=== PATIENT | male | born 1940 | race Caucasian/White ===

== ENCOUNTER 2016-12-25 01:08 | Inpatient (IN) | payer MEDICARE, MEDICAID ==
[2016-12-25] VITALS (7 sets, daily range): BP systolic 94–129; BP diastolic 57–76
[~2016-12-25] VITALS: Ht 170.2 cm; Wt 59.0 kg
[2016-12-25] MEDS ORDERED: ASCORBIC ACID500 MG ORAL (01:52)
[2016-12-25 02:07] LABS: KETONES,URINE NEGATIVE (NEGATIVE); LEUKOCYTE ESTERASE ,URINE 1+ (NEGATIVE); NITRITE,URINE NEGATIVE (NEGATIVE); PH,URINE 6 (4.5-8.0); PROTEIN,URINE NEGATIVE (NEGATIVE); UROBILINOGEN,URINE 4 MG/DL (0.0-1.0)
[2016-12-25 02:09] LABS: APPEARANCE,URINE CLEAR
[2016-12-25] MEDS ORDERED: COLACE CLEAR50 MG PO (02:13)
[2016-12-25] MEDS ORDERED: DIVALPROEX SOD250 M1 PO (02:13)
[2016-12-25] MEDS ORDERED: LORAZEPAM0.5 MG ORAL (02:13)
[2016-12-25] MEDS ORDERED: VITAMIN B-1100 MG ORAL (02:13)
[2016-12-25] MEDS ORDERED: PRAVASTATIN SOD20 M1 ORAL (02:13)
[2016-12-25] MEDS ORDERED: FAMOTIDINE20 MG ORAL (02:13)
[2016-12-25] MEDS ORDERED: MILK OF MA400 MG/51 ORAL (02:13)
[2016-12-25] MEDS ORDERED: CARVEDILOL3.125 MG ORAL (02:13)
[2016-12-25] MEDS ORDERED: MELATONIN3 MG ORAL (02:13)
[2016-12-25] MEDS ORDERED: FUROSEMIDE40 MG ORAL (02:13)
[2016-12-25] MEDS ORDERED: DULCOLAX10 MG RC (02:13)
[2016-12-25] MEDS ORDERED: DIGOXIN125 MCG ORAL (02:13)
[2016-12-25 02:15] LABS: TROPONIN I < 0.30 ng/mL (<=0.30)
[2016-12-25 02:18] LABS: ALANINE AMINOTRANSFERASE 18 U/L (3-41); ALBUMIN/GLOBULIN RATIO 1.5 (1.0-2.7); ANION GAP 12 (5-15); ASPARTATE AMINO TRANSFERASE 21 U/L (5-40); CALCIUM 9.8 mg/dL (8.6-10.2); CARBON DIOXIDE 36 mEQ/L (20-30); CHLORIDE 91 mEQ/L (98-107); CREATININE 1.7 mg/dL (0.7-1.2); HEMOLYSIS 7; LIPASE 77 U/L (< 60); POTASSIUM 3.6 mEQ/L (3.4-4.9); SODIUM 139 mEQ/L (135-145); TOTAL PROTEIN 7.1 g/dL (6.6-8.7)
[2016-12-25 02:29] LABS: CKMB 3.6 ng/mL (< 6.7)
[2016-12-25 02:54] LABS: BASOPHILS % (AUTO) 0.5 % (0.0-2.0); EOSINOPHILS % (AUTO) 0.3 % (0.0-3.0); LYMPHOCYTES % (AUTO) 21.3 % (20.0-45.0); MEAN CORPUSCULAR HEMOGLOBIN 33.1 PG (27.0-31.0); MEAN CORPUSCULAR HGB CONC 35.6 G/DL (32.0-36.0); MEAN CORPUSCULAR VOLUME 93 FL (80-99); MEAN PLATELET VOLUME 10.1 FL (6.5-10.1); MONOCYTES % (AUTO) 5.4 % (1.0-10.0); NEUTROPHILS % (AUTO) 72.5 % (45.0-75.0); PLATELET COUNT 102 K/UL (150-450); RED BLOOD COUNT 3.96 M/UL (4.70-6.10)
[2016-12-25 03:09] LABS: BACTERIA,URINE OCCASIONAL /HPF; MUCUS,URINE FEW /LPF (NONE/OCC); RBC,URINE 0-2 /HPF (0 - 0); SQUAMOUS EPITHELIAL CELL,UR OCCASIONAL /LPF (NONE/OCC)
--- NOTE | 2016-12-25 04:05 | Emergency Room Report ---
History of Present Illness General Chief Complaint: Generalized Weakness Source: EMS Present Illness HPI Patient was sent in from nursing facility with complaints of agitation Patient was noted to have decreased oral intake No reports of vomiting or diarrhea Patient himself is unable to provide appropriate history This does limit the history of present illness significantly No obvious fevers reported no obvious rash No other change in medications recently Patient's condition had deteriorated according to long-term patient sent in for further eval Allergies: Coded Allergies: No Known Allergies (Unverified , 12/25/16) Patient History Limited by: medical condition Pertinent Family History: unable to obtain Reviewed Nursing Documentation: PMH: Agreed, PSxH: Agreed Nursing Documentation-PMH Hx Cardiac Problems: Yes - CHF,A FIB,HYPERLIPIDEMIA Hx Hypertension: Yes Hx Pacemaker: Yes Hx Gastrointestinal Problems: Yes - CHRONIC KIDNEY DISEASE Hx Seizures: Yes Review of Systems All Other Systems: limited - Other than the ones mentioned in the history of present illness all others are reviewed however they do stay limited due to the patient's mental status Physical Exam Vital Signs Date Time Temp Pulse Resp B/P Pulse Ox O2 Delivery O2 Flow Rate FiO2 12/25/16 01:00 97.5 78 16 164/85 91 Room Air 12/25/16 03:26 2.0 Sp02 EP Interpretation: reviewed, normal General Appearance: no apparent distress - Appears chronically debilitated Head: normocephalic, atraumatic Eyes: bilateral eye EOMI, bilateral eye PERRL ENT: TMs + canals normal, uvula midline, dry mucus membranes Neck: full range of motion, supple, no meningismus, no bony tend Respiratory: lungs clear, normal breath sounds, no rhonchi, no respiratory distress, no retraction, no accessory muscle use Cardiovascular #1: normal peripheral pulses, regular rate, rhythm, no edema, no gallop, no JVD, no murmur Gastrointestinal: normal bowel sounds, non tender, soft, no mass, no organomegaly, non-distended, no guarding, no hernia, no pulsatile mass, no rebound Genitourinary: no CVA tenderness Musculoskeletal: other - Patient does not follow commands appears chronically debilitated, muscle exam is limited Neurologic: responsive, sensory intact Psychiatric: mood/affect normal Skin: normal color, no rash, warm/dry, palpation normal Lymphatic: normal inspection, no adenopathy Medical Decision Making Diagnostic Impression: Primary Impression: Renal failure Additional Impressions: Dehydration Weakness ER Course Patient is a fairly complex patient with multiple differential to consideration including but not limited to cardiac cardiopulmonary and vascular emergencies Patient's blood work revealed abnormal kidney function Urine sample have further culture prior to any antibiotic initiation Patient was further hydrated and requires inpatient care Labs Test 12/25/16 01:45 12/25/16 01:58 White Blood Count 8.0 K/UL (4.8-10.8) Red Blood Count 3.96 M/UL (4.70-6.10) Hemoglobin 13.1 G/DL (14.2-18.0) Hematocrit 36.9 % (42.0-52.0) Mean Corpuscular Volume 93 FL (80-99) Mean Corpuscular Hemoglobin 33.1 PG (27.0-31.0) Mean Corpuscular Hemoglobin Concent 35.6 G/DL (32.0-36.0) Red Cell Distribution Width 13.0 % (11.6-14.8) Platelet Count 102 K/UL (150-450) Mean Platelet Volume 10.1 FL (6.5-10.1) Neutrophils (%) (Auto) 72.5 % (45.0-75.0) Lymphocytes (%) (Auto) 21.3 % (20.0-45.0) Monocytes (%) (Auto) 5.4 % (1.0-10.0) Eosinophils (%) (Auto) 0.3 % (0.0-3.0) Basophils (%) (Auto) 0.5 % (0.0-2.0) Sodium Level 139 mEQ/L (135-145) Potassium Level 3.6 mEQ/L (3.4-4.9) Chloride Level 91 mEQ/L (98-107) Carbon Dioxide Level 36 mEQ/L (20-30) Anion Gap 12 (5-15) Blood Urea Nitrogen 51 mg/dL (7-23) Creatinine 1.7 mg/dL (0.7-1.2) Estimat Glomerular Filtration Rate mL/min (>60) Glucose Level 97 mg/dL (74-106) Lactic Acid Level 1.40 mmol/L (0.66-2.22) Calcium Level 9.8 mg/dL (8.6-10.2) Total Bilirubin 0.6 mg/dL (0.0-1.2) Aspartate Amino Transf (AST/SGOT) 21 U/L (5-40) Alanine Aminotransferase (ALT/SGPT) 18 U/L (3-41) Alkaline Phosphatase 61 U/L (40-129) Total Creatine Kinase 54 U/L (38-174) Creatine Kinase MB 3.6 ng/mL (< 6.7) Creatine Kinase MB Relative Index 6.6 Troponin I < 0.30 ng/mL (<=0.30) Total Protein 7.1 g/dL (6.6-8.7) Albumin 4.3 g/dL (3.5-5.2) Globulin 2.8 g/dL Albumin/Globulin Ratio 1.5 (1.0-2.7) Lipase 77 U/L (< 60) Urine Color Yellow Urine Appearance Clear Urine pH 6 (4.5-8.0) Urine Specific [place] 1.015 (1.005-1.035) Urine Protein Negative (NEGATIVE) Urine Glucose (UA) Negative (NEGATIVE) Urine Ketones Negative (NEGATIVE) Urine Occult Blood Negative (NEGATIVE) Urine Nitrite Negative (NEGATIVE) Urine Bilirubin Negative (NEGATIVE) Urine Urobilinogen 4 MG/DL (0.0-1.0) Urine Leukocyte Esterase 1+ (NEGATIVE) Urine RBC 0-2 /HPF (0 - 0) Urine WBC 2-4 /HPF (0 - 0) Urine Squamous Epithelial Cells Occasional /LPF Urine Bacteria Occasional /HPF (NONE) Urine Mucus Few /LPF (NONE/OCC) Rhythm Strip Diag. Results EP Interpretation: yes Rate: 67 Rhythm: NSR, no PVC's, no ectopy Chest X-Ray Diagnostic Results EP Interpretation: Yes Findings: no consolidation, no effusion, no pneumothorax Number of Views: 1 Last Vital Signs Date Time Temp Pulse Resp B/P Pulse Ox O2 Delivery O2 Flow Rate FiO2 12/25/16 03:26 97.5 64 14 106/63 100 Nasal Cannula 2.0 Status: improved Disposition: ADMITTED INPATIENT Condition: Serious Referrals: AGNIESZKA BURNS (PCP) JAKE NAM D.O. Dec 25, 2016 04:05
[2016-12-25] MEDS ORDERED: Morphine Sulfate 2mg/ml Inj IVP PRN (08:00)
[2016-12-25] MEDS ORDERED: Mylanta II UD 30ml ORAL PRN (08:00)
[2016-12-25] MEDS: Digoxin 0.125mg tab ORAL SCH (09:22)
[2016-12-25] MEDS: D5 1/2NS 1,000 ML IV SCH ×2 (09:24→21:19)
[2016-12-25 10:31] LABS: ALANINE AMINOTRANSFERASE 16 U/L (3-41); ALBUMIN/GLOBULIN RATIO 1.6 (1.0-2.7); ANION GAP 11 (5-15); ASPARTATE AMINO TRANSFERASE 18 U/L (5-40); CALCIUM 9.4 mg/dL (8.6-10.2); CARBON DIOXIDE 35 mEQ/L (20-30); CHLORIDE 94 mEQ/L (98-107); CREATININE 1.7 mg/dL (0.7-1.2); LACTATE DEHYDROGENASE 220 U/L (135-230); MAGNESIUM 2.4 mg/dL (1.7-2.5); PHOSPHORUS 2.8 mg/dL (2.5-4.8); POTASSIUM 3.4 mEQ/L (3.4-4.9); SODIUM 140 mEQ/L (135-145); TOTAL PROTEIN 6.5 g/dL (6.6-8.7); URIC ACID 10.9 mg/dL (3.0-7.5)
[2016-12-25 10:32] LABS: INR 1.1 (0.9-1.1); PROTHROMBIN TIME 11.2 SEC (9.30-11.50)
[2016-12-25 10:43] LABS: FREE T3 1.8 pg/mL (2.3-4.2)
[2016-12-25 10:58] LABS: HEMOLYSIS 3; IRON 53 ug/dL (59-158); TOTAL IRON BINDING CAPACITY 168 ug/dL (250-400)
[2016-12-25 11:02] LABS: BAND NEUTROPHILS % (MANUAL) 0 % (0-8); BASOPHILS % (MANUAL) 0 % (0-2); EOSINOPHILS % (MANUAL) 0 % (0-3); LYMPHOCYTES % (MANUAL) 17 % (20-45); NEUTROPHILS % (MANUAL) 73 % (45-75); PLATELET ESTIMATE DECREASED; PLATELET MORPHOLOGY NORMAL; TOTAL CELLS COUNTED 100
[2016-12-25 11:06] LABS: PATH BLOOD SMEAR/OMC SENT TO PATHOLOGIST
--- NOTE | 2016-12-25 11:41 | Diagnostic Imaging Report ---
Indication: Abnormal renal function tests Technique: Grayscale and duplex images of the kidneys, retroperitoneum, and bladder were obtained. Comparison: Findings: Right kidney measures 10 cm in length. Left kidney measures 9 cm in length. Both kidneys demonstrate normal echogenicity. No hydronephrosis. There are small bilateral renal cysts.. Normal inferior vena cava. Bladder is distended. Non-shadowing hyperechoic foci are seen on the right. Impression: Negative for hydronephrosis. Non-shadowing hyperechoic foci on the right, the represent nonobstructive calyceal calculi or could be artifactual Incidental finding small bilateral renal cysts
--- NOTE | 2016-12-25 12:50 | Diagnostic Imaging Report ---
Indication: Chest pain Technique: One view of the chest Comparison: none Findings: There is a left chest unifocal AICD. Lungs and pleural spaces are clear. Patient's chin obscures the upper mediastinum. Aorta is tortuous and calcified. Heart size is normal Impression: No acute process
--- NOTE | 2016-12-25 16:50 | Consultation ---
History of Present Illness General Date patient seen: Dec 25, 2016 Time patient seen: 13:00 Chief Complaint: Generalized Weakness Referring physician: Anthony Reason for Consultation: IM management Present Illness HPI Patient was sent in to ED for evaluation from nursing facility with complaints of agitation, decreased oral intake No reports of vomiting or diarrhea No reported fevers, chills Patient himself was unable to provide appropriate history Patient's condition had deteriorated according to correction patient sent in for further evaluation ED workup revealed evidence of renal failure patient was hydrated and transferred to [facility] floor for further management PMH significant for HTN, pacemaker, CKD, A fib, CHF, hyperlipidemia, seizure disorder Allergies: Coded Allergies: No Known Allergies (Unverified , 12/25/16) Medication History Scheduled Ascorbic Acid* (Ascorbic Acid*), 500 MG ORAL DAILY, (Reported) Carvedilol* (Carvedilol*), 3.125 MG ORAL EVERY 12 HOURS, (Reported) Digoxin* (Digoxin*), 125 MCG ORAL DAILY, (Reported) Divalproex Sodium (Divalproex Sodium Er), 250 MG PO BID, (Reported) Famotidine (Famotidine), 20 MG ORAL BEDTIME, (Reported) Furosemide* (Lasix*), 40 MG ORAL DAILY, (Reported) Pravastatin Sod* (Pravastatin Sod*), 20 MG ORAL BEDTIME, (Reported) Thiamine Hcl* (Vitamin B-1*), 100 MG ORAL DAILY, (Reported) Scheduled PRN Lorazepam* (Lorazepam*), 0.5 MG ORAL Q6HR PRN for For Anxiety, (Reported) Magnesium Hydroxide* (Milk Of Magnesia*), 30 ML ORAL DAILY PRN for Constipation, (Reported) Melatonin (Melatonin), 3 MG ORAL BEDTIME PRN for Insomnia, (Reported) Miscellaneous Medications Bisacodyl (Dulcolax), 10 MG RC, (Reported) Docusate Sodium (Colace Clear), 100 MG PO, (Reported) Patient History History Provided By: Medical Record, EMS Healthcare decision maker Resuscitation status DNR/DNI Advanced Directive on File Review of Systems ROS Narrative unable to obtain 2 to ALOC Physical Exam General Appearance: other - chronically debilitated Lines, tubes and drains: peripheral HEENT: normocephalic, atraumatic, anicteric Neck: supple Respiratory/Chest: lungs clear, no accessory muscle use Cardiovascular/Chest: normal rate, regular rhythm Abdomen: normal bowel sounds, non tender, soft Extremities: no calf tenderness Skin Exam: warm/dry Neurologic: abnormal gait Musculoskeletal: atrophy - BLE Last 24 Hour Vital Signs Date Time Temp Pulse Resp B/P Pulse Ox O2 Delivery O2 Flow Rate FiO2 12/25/16 16:00 97.6 70 20 129/70 97 Room Air 12/25/16 09:22 77 12/25/16 08:00 96.8 77 18 128/74 98 Room Air 12/25/16 07:20 81 18 102/59 100 Room Air 12/25/16 06:54 97.5 83 17 94/57 100 Nasal Cannula 2.0 12/25/16 03:26 97.5 64 14 106/63 100 Nasal Cannula 2.0 12/25/16 01:15 97.5 72 14 110/76 97 Room Air 12/25/16 01:00 97.5 78 16 164/85 91 Room Air Intake and Output 12/24/16 12/25/16 19:00 07:00 # Voids 1 Laboratory Tests Test 12/25/16 01:45 12/25/16 01:58 12/25/16 09:30 White Blood Count 8.0 K/UL (4.8-10.8) Red Blood Count 3.96 M/UL (4.70-6.10) L Hemoglobin 13.1 G/DL (14.2-18.0) L Hematocrit 36.9 % (42.0-52.0) L Mean Corpuscular Volume 93 FL (80-99) Mean Corpuscular Hemoglobin 33.1 PG (27.0-31.0) H Mean Corpuscular Hemoglobin Concent 35.6 G/DL (32.0-36.0) Red Cell Distribution Width 13.0 % (11.6-14.8) Platelet Count 102 K/UL (150-450) L Mean Platelet Volume 10.1 FL (6.5-10.1) Neutrophils (%) (Auto) 72.5 % (45.0-75.0) Lymphocytes (%) (Auto) 21.3 % (20.0-45.0) Monocytes (%) (Auto) 5.4 % (1.0-10.0) Eosinophils (%) (Auto) 0.3 % (0.0-3.0) Basophils (%) (Auto) 0.5 % (0.0-2.0) Differential Total Cells Counted 100 Neutrophils % (Manual) 73 % (45-75) Lymphocytes % (Manual) 17 % (20-45) L Monocytes % (Manual) 10 % (1-10) Eosinophils % (Manual) 0 % (0-3) Basophils % (Manual) 0 % (0-2) Band Neutrophils 0 % (0-8) Platelet Estimate Decreased L Platelet Morphology Normal Red Blood Cell Morphology Normal Sodium Level 139 mEQ/L (135-145) 140 mEQ/L (135-145) Potassium Level 3.6 mEQ/L (3.4-4.9) 3.4 mEQ/L (3.4-4.9) Chloride Level 91 mEQ/L (98-107) L 94 mEQ/L (98-107) L Carbon Dioxide Level 36 mEQ/L (20-30) H 35 mEQ/L (20-30) H Anion Gap 12 (5-15) 11 (5-15) Blood Urea Nitrogen 51 mg/dL (7-23) H 51 mg/dL (7-23) H Creatinine 1.7 mg/dL (0.7-1.2) H 1.7 mg/dL (0.7-1.2) H Estimat Glomerular Filtration Rate mL/min (>60) mL/min (>60) Glucose Level 97 mg/dL (74-106) 109 mg/dL (74-106) H Lactic Acid Level 1.40 mmol/L (0.66-2.22) Calcium Level 9.8 mg/dL (8.6-10.2) 9.4 mg/dL (8.6-10.2) Total Bilirubin 0.6 mg/dL (0.0-1.2) 0.6 mg/dL (0.0-1.2) Aspartate Amino Transf (AST/SGOT) 21 U/L (5-40) 18 U/L (5-40) Alanine Aminotransferase (ALT/SGPT) 18 U/L (3-41) 16 U/L (3-41) Alkaline Phosphatase 61 U/L (40-129) 55 U/L (40-129) Total Creatine Kinase 54 U/L (38-174) 34 U/L (38-174) L Creatine Kinase MB 3.6 ng/mL (< 6.7) Creatine Kinase MB Relative Index 6.6 Troponin I < 0.30 ng/mL (<=0.30) Total Protein 7.1 g/dL (6.6-8.7) 6.5 g/dL (6.6-8.7) L Albumin 4.3 g/dL (3.5-5.2) 4.0 g/dL (3.5-5.2) Globulin 2.8 g/dL 2.5 g/dL Albumin/Globulin Ratio 1.5 (1.0-2.7) 1.6 (1.0-2.7) Lipase 77 U/L (< 60) H Urine Color Yellow Urine Appearance Clear Urine pH 6 (4.5-8.0) Urine Specific [place] 1.015 (1.005-1.035) Urine Protein Negative (NEGATIVE) Urine Glucose (UA) Negative (NEGATIVE) Urine Ketones Negative (NEGATIVE) Urine Occult Blood Negative (NEGATIVE) Urine Nitrite Negative (NEGATIVE) Urine Bilirubin Negative (NEGATIVE) Urine Urobilinogen 4 MG/DL (0.0-1.0) H Urine Leukocyte Esterase 1+ (NEGATIVE) H Urine RBC 0-2 /HPF (0 - 0) H Urine WBC 2-4 /HPF (0 - 0) Urine Squamous Epithelial Cells Occasional /LPF Urine Bacteria Occasional /HPF (NONE) Urine Mucus Few /LPF (NONE/OCC) H Urine Osmolality Pending Erythrocyte Sedimentation Rate 26 MM/HR (0-20) H Reticulocyte Count 1.0 % (0.0-2.0) Prothrombin Time 11.2 SEC (9.30-11.50) Prothromb Time International Ratio 1.1 (0.9-1.1) Activated Partial Thromboplast Time 25 SEC (23-33) Plasma/Serum Osmolality Pending Uric Acid 10.9 mg/dL (3.0-7.5) H Phosphorus Level 2.8 mg/dL (2.5-4.8) Magnesium Level 2.4 mg/dL (1.7-2.5) Iron Level 53 ug/dL (59-158) L Total Iron Binding Capacity 168 ug/dL (250-400) L Percent Iron Saturation 32 % (15-50) Unsaturated Iron Binding 115 ug/dL (112-346) Lactate Dehydrogenase 220 U/L (135-230) Carcinoembryonic Antigen 4.2 ng/mL H Vitamin B12 Level 769 pg/mL (211-946) Folate Pending Thyroid Stimulating Hormone (TSH) 1.410 uIU/mL (0.300-4.500) Free Thyroxine 1.57 ng/dL (0.86-1.85) Free Triiodothyronine 1.8 pg/mL (2.3-4.2) L Cortisol Pending Height (Feet): 5 Height (Inches): 7.00 Weight (Pounds): 130 Medications Current Medications Medications (Trade) Dose Ordered Sig/Holly Route PRN Reason Start Time Stop Time Status Last Admin Dose Admin Acetaminophen (Tylenol) 650 mg Q4H PRN ORAL fever>100.5 12/25/16 08:00 01/24/17 07:59 Al Hydroxide/Mg Hydroxide 30 ml 30 ml Q6H PRN ORAL dyspepsia 12/25/16 08:00 01/24/17 07:59 Dextrose (Dextrose 50%) STAT PRN IV Hypoglycemia 12/25/16 08:00 01/24/17 07:59 Dextrose/Sodium Chloride (D5 0.45% NS) 1,000 ml @ 75 mls/hr [id number] IV 12/25/16 08:00 01/24/17 07:59 12/25/16 09:24 Digoxin (Lanoxin) 0.125 mg DAILY ORAL 12/25/16 09:00 01/24/17 08:59 12/25/16 09:22 Lorazepam (Ativan 2mg/ml 1ml) 0.5 mg Q4H PRN IV For Anxiety 12/25/16 08:00 01/01/17 07:59 Morphine Sulfate (Morphine Sulfate) 1 mg Q4H PRN IVP For Pain 12/25/16 08:00 01/01/17 07:59 Ondansetron HCl (Zofran) 4 mg Q6H PRN IVP Nausea & Vomiting 12/25/16 08:00 01/24/17 07:59 Polyethylene Glycol (Miralax) 17 gm HSPRN PRN ORAL Constipation 12/25/16 21:00 01/24/17 20:59 Pravastatin Sodium (Pravachol) 20 mg BEDTIME ORAL 12/25/16 21:00 01/24/17 20:59 Zolpidem Tartrate (Ambien) 5 mg HSPRN PRN ORAL Insomnia 12/25/16 21:00 01/24/17 20:59 Assessment/Plan Assessment/Plan ASSESSMENT ATN on CKD dehydration weakness PAF CHF hyperlipidemia seizure disorder elevated CEA PLAN OF CARE MS floor IVF monitor renal parameters, lytes avoid nephrotoxic renal US nephro eval as per PMD discretion fup with cx ( done in ED), no abx for now, no clinical evidence of infection currently in SR, resumed Digoxin and Coreg continue statin, check lipid panel seizure precautions, continue Depakote monitor HH, stable recommend outpt GI procedures PT/OT/ST eval and Rx dietary eval calorie count according to POLST patient is DNR/DNI status with focus on comfort measures case discussed and evaluated by supervising physician Nicanor (Opal),Pallavi MESA Dec 25, 2016 16:50
[2016-12-25] MEDS: Depakote ER 250mg tab ORAL SCH (17:54)
--- NOTE | 2016-12-25 19:37 | History and Physical Report ---
DATE OF ADMISSION: 12/25/2016 TIME OF EVALUATION: At 1 p.m. ATTENDING PHYSICIAN: Scott Cruz D.O. CONSULTANTS: 1. Christina Graves M.D. 2. Tierra Mills M.D. 3. Rishi Cook M.D. CHIEF COMPLAINT: Weakness, agitation, encephalopathy. BRIEF HISTORY: This is a 76-year-old male from [facility], who presents to [facility] with history of increased confusion, agitation, and weakness. Diagnosed of renal failure, agitation, weakness, and encephalopathy and admitted to medical floor for treatment. Currently, calm, sleeping in bed, confused, not talking much. REVIEW OF SYSTEMS: Not available. PAST MEDICAL HISTORY: Includes renal failure, encephalopathy. PAST SURGICAL HISTORY: None. ALLERGIES: Denies. MEDICATIONS: Pravachol, MiraLAX, Ambien, Lanoxin, Zofran, Ativan, dextrose, and Mylanta. SOCIAL HISTORY: No smoking or alcohol. No intravenous drug abuse. FAMILY HISTORY: Noncontributory. PHYSICAL EXAMINATION: GENERAL: Calm in bed, disoriented x3, in no acute distress. VITAL SIGNS: Show temperature 96, pulse 77, respiratory rate 18, and blood pressure 128/74. CARDIOVASCULAR: No murmur. Distant. LUNGS: Clear. ABDOMEN: Bowel sounds positive. Nontender and nondistended. EXTREMITIES: Show no cyanosis or edema. NEUROLOGIC: The patient moves all extremities. Does not want to follow commands. LABORATORY AND DIAGNOSTIC DATA: Labs at this time show hemoglobin 13, platelets 102,000. Chloride 94, bicarbonate , BUN 51, creatinine 1.7, glucose 109. Uric acid 10.9. Troponin less than 0.3. Lipase 77. INR is 1.1. Urinalysis shows 1+ leukocyte esterase. ASSESSMENT: 1. Renal failure. 2. Urinary tract infection. 3. Agitation. 4. Weakness. 5. Encephalopathy. PLAN: Continue premedications. IV fluids. Antibiotics per infectious disease. OT, PT, dietary evaluation. CBC and BMP in the morning. Resume home medications. Dr. Graves, Dr. Mills, Dr. Cook, and Dr. Jacobsen to consult. Scott Cruz D.O. DR: Maldonado JOB#: [id number] CC:
[2016-12-25] MEDS ORDERED: Miralax 17gm pkt ORAL PRN (21:00)
[2016-12-25] MEDS ORDERED: Zolpidem 5mg tab ORAL PRN (21:00)
[2016-12-26] VITALS: BP 138/84
[2016-12-26 04:00] VITALS: BP 132/65
[2016-12-26 07:16] LABS: MEAN CORPUSCULAR HEMOGLOBIN 32.5 PG (27.0-31.0); MEAN CORPUSCULAR HGB CONC 34.6 G/DL (32.0-36.0); MEAN CORPUSCULAR VOLUME 94 FL (80-99); MEAN PLATELET VOLUME 9.8 FL (6.5-10.1); PLATELET COUNT 80 K/UL (150-450); RED BLOOD COUNT 3.34 M/UL (4.70-6.10); RED CELL DISTRIBUTION WIDTH 13.4 % (11.6-14.8); WHITE BLOOD COUNT 6.3 K/UL (4.8-10.8)
[2016-12-26 07:24] LABS: ALANINE AMINOTRANSFERASE 13 U/L (3-41); ALBUMIN/GLOBULIN RATIO 1.6 (1.0-2.7); ANION GAP 10 (5-15); ASPARTATE AMINO TRANSFERASE 15 U/L (5-40); CALCIUM 9.4 mg/dL (8.6-10.2); CARBON DIOXIDE 36 mEQ/L (20-30); CHLORIDE 93 mEQ/L (98-107); CHOLESTEROL 113 mg/dL (< 200); CHOLESTEROL/HDL RATIO 1.9 (3.3-4.4); CREATININE 1.6 mg/dL (0.7-1.2); HEMOLYSIS 6; LDL CHOLESTEROL (CALC.) 31 mg/dL (60-99); POTASSIUM 3.7 mEQ/L (3.4-4.9); SODIUM 139 mEQ/L (135-145)
--- NOTE | 2016-12-26 08:20 | General Progress Note ---
Assessment/Plan Problem List: (1) UTI (urinary tract infection) ICD Codes: N39.0 - Urinary tract infection, site not specified SNOMED: 89332890 (2) Renal failure ICD Codes: N19 - Unspecified kidney failure SNOMED: 77603885 (3) Weakness ICD Codes: R53.1 - Weakness SNOMED: 44734082 Status: stable, progressing Assessment/Plan ot pt diet ivf abx cbc bmp am Subjective Constitutional: Reports: weakness Allergies: Coded Allergies: No Known Allergies (Unverified , 12/25/16) All Systems: reviewed and negative except above Subjective calm sleepy in bed Objective Last 24 Hour Vital Signs Date Time Temp Pulse Resp B/P Pulse Ox O2 Delivery O2 Flow Rate FiO2 12/26/16 04:00 98.2 74 16 132/65 96 Room Air 12/26/16 00:00 98.4 72 16 138/84 96 Room Air 12/25/16 20:20 70 129/70 12/25/16 20:00 98.4 71 18 118/61 95 Room Air 12/25/16 16:00 97.6 70 20 129/70 97 Room Air 12/25/16 09:22 77 Intake and Output 12/25/16 12/26/16 19:00 07:00 Intake Total 600 ml 400 ml Balance 600 ml 400 ml Intake IV Total 600 ml 400 ml # Voids 1 # Bowel Movements 1 Laboratory Tests 12/25/16 09:30: Erythrocyte Sedimentation Rate 26H, Reticulocyte Count 1.0, Prothrombin Time 11.2, Prothromb Time International Ratio 1.1, Activated Partial Thromboplast Time 25, Sodium Level 140, Potassium Level 3.4, Chloride Level 94L, Carbon Dioxide Level 35H, Anion Gap 11, Blood Urea Nitrogen 51H, Creatinine 1.7H, Estimat Glomerular Filtration Rate , Glucose Level 109H, Plasma/Serum Osmolality [Pending], Uric Acid 10.9H, Calcium Level 9.4, Phosphorus Level 2.8, Magnesium Level 2.4, Iron Level 53L, Total Iron Binding Capacity 168L, Percent Iron Saturation 32, Unsaturated Iron Binding 115, Total Bilirubin 0.6, Aspartate Amino Transf (AST/SGOT) 18, Alanine Aminotransferase (ALT/SGPT) 16, Alkaline Phosphatase 55, Lactate Dehydrogenase 220, Total Creatine Kinase 34L, Total Protein 6.5L, Albumin 4.0, Globulin 2.5, Albumin/Globulin Ratio 1.6, Carcinoembryonic Antigen 4.2H, Vitamin B12 Level 769, Folate [Pending], Thyroid Stimulating Hormone (TSH) 1.410, Free Thyroxine 1.57, Free Triiodothyronine 1.8L , Cortisol [Pending] 12/26/16 05:45: Sodium Level 139, Potassium Level 3.7, Chloride Level 93L, Carbon Dioxide Level 36H, Anion Gap 10, Blood Urea Nitrogen 46H, Creatinine 1.6H, Estimat Glomerular Filtration Rate , Glucose Level 90, Calcium Level 9.4, Total Bilirubin 0.8, Aspartate Amino Transf (AST/SGOT) 15, Alanine Aminotransferase (ALT/SGPT) 13, Alkaline Phosphatase 51, Total Protein 6.0L, Albumin 3.7, Globulin 2.3, Albumin/ Globulin Ratio 1.6, Thyroid Stimulating Hormone (TSH) 1.020, White Blood Count 6.3, Red Blood Count 3.34L, Hemoglobin 10.9L, Hematocrit 31.4L, Mean Corpuscular Volume 94, Mean Corpuscular Hemoglobin 32.5H, Mean Corpuscular Hemoglobin Concent 34.6, Red Cell Distribution Width 13.4, Platelet Count 80L, Mean Platelet Volume 9.8, Neutrophils (%) (Auto) , Lymphocytes (%) (Auto) , Monocytes (%) (Auto) , Eosinophils (%) (Auto) , Basophils (%) (Auto) , Neutrophils % (Manual) [Pending], Lymphocytes % (Manual) [Pending], Platelet Estimate [Pending], Platelet Morphology [Pending], Triglycerides Level 122, Cholesterol Level 113, LDL Cholesterol 31L, HDL Cholesterol 58, Cholesterol/HDL Ratio 1.9L Height (Feet): 5 Height (Inches): 7.00 Weight (Pounds): 130 General Appearance: lethargic EENT: normal ENT inspection Neck: normal alignment Cardiovascular: normal peripheral pulses, normal rate, regular rhythm Respiratory/Chest: chest wall non-tender, lungs clear, normal breath sounds Abdomen: normal bowel sounds, non tender, soft Extremities: normal inspection Edema: no edema noted Arm (L), no edema noted Arm (R), no edema noted Leg (L), no edema noted Leg (R), no edema noted Pedal (L), no edema noted Pedal (R), no edema noted Generalized Neurologic: motor weakness Skin: normal pigmentation, warm/dry AGNIESZKA BURNS Dec 26, 2016 08:20
[2016-12-26 08:21] VITALS: BP 97/48
[2016-12-26] MEDS: Digoxin 0.125mg tab ORAL SCH (09:00)
[2016-12-26] MEDS: Depakote ER 250mg tab ORAL SCH (09:30)
[2016-12-26] MEDS: D5 1/2NS 1,000 ML IV SCH (09:31)
[2016-12-26 10:14] LABS: BAND NEUTROPHILS % (MANUAL) 4 % (0-8); EOSINOPHILS % (MANUAL) 1 % (0-3); LYMPHOCYTES % (MANUAL) 41 % (20-45); NEUTROPHILS % (MANUAL) 52 % (45-75); TOTAL CELLS COUNTED 100
[2016-12-26 10:15] LABS: BASOPHILS % (MANUAL) 0 % (0-2); PLATELET ESTIMATE DECREASED; PLATELET MORPHOLOGY NORMAL
--- NOTE | 2016-12-26 10:42 | Pulmonology Progress Note ---
Assessment/Plan Assessment/Plan ASSESSMENT ATN on CKD dehydration weakness PAF CHF hyperlipidemia seizure disorder elevated CEA thrombocytopenia anemia PL[facility] CARE [place] floor IVF monitor renal parameters, lytes, cerat slightly down avoid nephrotoxic renal US - no hydro, normal bilateral echogenicity nephro eval as per PMD discretion fup with cx ( done in ED), no abx for now, no clinical evidence of infection resumed Digoxin and Coreg continue statin, lipid panel stable seizure precautions, continue Depakote monitor HH, with small trend down, monitor, recommend outpt GI procedures for elevated CEA PT/OT/ST eval and Rx PLT trending down, dc Depakote ( likely contributing) , monitor PLT counts anemia workup , clsoely monitor HH dietary eval calorie count according to POLST patient is DNR/DNI status with focus on comfort measures case discussed and evaluated by supervising physician Subjective Allergies: Coded Allergies: No Known Allergies (Unverified , 12/25/16) Subjective afebrile, no leucocytosis no signs of respiratory distress no chest pain, no SOB, no dizziness no abdominal pain, no flank pain HH trending down PLT trending down renal parameters with small improvement only Objective Last 24 Hour Vital Signs Date Time Temp Pulse Resp B/P Pulse Ox O2 Delivery O2 Flow Rate FiO2 12/26/16 09:00 55 97/48 12/26/16 09:00 55 12/26/16 08:21 97.5 55 16 97/48 100 Nasal Cannula 12/26/16 04:00 98.2 74 16 132/65 96 Room Air 12/26/16 00:00 98.4 72 16 138/84 96 Room Air 12/25/16 20:20 70 129/70 12/25/16 20:00 98.4 71 18 118/61 95 Room Air 12/25/16 16:00 97.6 70 20 129/70 97 Room Air Intake and Output 12/25/16 12/26/16 19:00 07:00 Intake Total 600 ml 400 ml Balance 600 ml 400 ml Intake IV Total 600 ml 400 ml # Voids 1 # Bowel Movements 1 Objective General Appearance: chronically debilitated awake, confused male, awake, responsive, not always appropriately Lines, tubes and drains: peripheral HEENT: normocephalic, atraumatic, anicteric Neck: supple Respiratory/Chest: lungs clear, no accessory muscle use Cardiovascular/Chest: normal rate, regular rhythm Abdomen: normal bowel sounds, non tender, soft Extremities: no calf tenderness Skin Exam: warm/dry Neurologic: abnormal gait Musculoskeletal: atrophy BLE Laboratory Tests 12/26/16 05:45: White Blood Count 6.3, Red Blood Count 3.34L, Hemoglobin 10.9L, Hematocrit 31.4L , Mean Corpuscular Volume 94, Mean Corpuscular Hemoglobin 32.5H, Mean Corpuscular Hemoglobin Concent 34.6, Red Cell Distribution Width 13.4, Platelet Count 80L, Mean Platelet Volume 9.8, Neutrophils (%) (Auto) , Lymphocytes (%) ( Auto) , Monocytes (%) (Auto) , Eosinophils (%) (Auto) , Basophils (%) (Auto) , Differential Total Cells Counted 100, Neutrophils % (Manual) 52, Lymphocytes % ( Manual) 41, Monocytes % (Manual) 2, Eosinophils % (Manual) 1, Basophils % ( Manual) 0, Band Neutrophils 4, Platelet Estimate DecreasedL, Platelet Morphology Normal, Red Blood Cell Morphology Normal, Sodium Level 139, Potassium Level 3.7, Chloride Level 93L, Carbon Dioxide Level 36H, Anion Gap 10 , Blood Urea Nitrogen 46H, Creatinine 1.6H, Estimat Glomerular Filtration Rate , Glucose Level 90, Calcium Level 9.4, Total Bilirubin 0.8, Aspartate Amino Transf (AST/SGOT) 15, Alanine Aminotransferase (ALT/SGPT) 13, Alkaline Phosphatase 51, Total Protein 6.0L, Albumin 3.7, Globulin 2.3, Albumin/Globulin Ratio 1.6, Triglycerides Level 122, Cholesterol Level 113, LDL Cholesterol 31L, HDL Cholesterol 58, Cholesterol/HDL Ratio 1.9L, Thyroid Stimulating Hormone (TSH ) 1.020 Current Medications Medications (Trade) Dose Ordered Sig/Holly Route PRN Reason Start Time Stop Time Status Last Admin Dose Admin Acetaminophen (Tylenol) 650 mg Q4H PRN ORAL fever>100.5 12/25/16 08:00 01/24/17 07:59 Al Hydroxide/Mg Hydroxide 30 ml 30 ml Q6H PRN ORAL dyspepsia 12/25/16 08:00 01/24/17 07:59 Carvedilol (Coreg) 3.125 mg EVERY 12 HOURS ORAL 12/25/16 21:00 01/24/17 20:59 12/25/16 20:20 Dextrose (Dextrose 50%) STAT PRN IV Hypoglycemia 12/25/16 08:00 01/24/17 07:59 Dextrose/Sodium Chloride (D5 0.45% NS) 1,000 ml @ 75 mls/hr [id number] IV 12/25/16 08:00 01/24/17 07:59 12/26/16 09:31 Digoxin (Lanoxin) 0.125 mg DAILY ORAL 12/25/16 09:00 01/24/17 08:59 12/25/16 09:22 Divalproex Sodium (Depakote ER) 250 mg BID ORAL 12/25/16 18:00 01/24/17 17:59 12/26/16 09:30 Lorazepam (Ativan 2mg/ml 1ml) 0.5 mg Q4H PRN IV For Anxiety 12/25/16 08:00 01/01/17 07:59 Morphine Sulfate (Morphine Sulfate) 1 mg Q4H PRN IVP For Pain 12/25/16 08:00 01/01/17 07:59 Ondansetron HCl (Zofran) 4 mg Q6H PRN IVP Nausea & Vomiting 12/25/16 08:00 01/24/17 07:59 Polyethylene Glycol (Miralax) 17 gm HSPRN PRN ORAL Constipation 12/25/16 21:00 01/24/17 20:59 Pravastatin Sodium (Pravachol) 20 mg BEDTIME ORAL 12/25/16 21:00 01/24/17 20:59 12/25/16 20:20 Zolpidem Tartrate (Ambien) 5 mg HSPRN PRN ORAL Insomnia 12/25/16 21:00 01/24/17 20:59 Pallavi Vick NP ([facility]) Dec 26, 2016 10:42
[2016-12-26 11:45] VITALS: BP 92/65
[2016-12-26 15:57] VITALS: BP 116/49
[2016-12-26 20:00] VITALS: BP 122/83
[2016-12-27] VITALS: BP 129/76
--- NOTE | 2016-12-27 | Nephrology Progress Note ---
Assessment/Plan Problem List: (1) Renal failure (2) Dehydration (3) Weakness (4) UTI (urinary tract infection) Assessment: f/u ucx. Plan monitor renal fxn. f/u renal us. monitor UOP. will follow. thanks. Subjective Subjective 76 y/o m admitted with weakness. patient noted to have elev Cr. Objective Objective Last 24 Hour Vital Signs Date Time Temp Pulse Resp B/P Pulse Ox O2 Delivery O2 Flow Rate FiO2 12/26/16 21:25 68 122/83 12/26/16 20:00 97.7 68 20 122/83 97 Room Air 12/26/16 15:57 97.6 56 14 116/49 98 Room Air 12/26/16 11:45 97.0 98 18 92/65 99 Room Air 12/26/16 09:00 55 97/48 12/26/16 09:00 55 12/26/16 08:21 97.5 55 16 97/48 100 Nasal Cannula 12/26/16 04:00 98.2 74 16 132/65 96 Room Air Intake and Output 12/26/16 12/27/16 19:00 07:00 Intake Total 2025 ml 895 ml Balance 2025 ml 895 ml Intake Oral 1350 ml 520 ml IV Total 675 ml 375 ml # Voids 2 2 # Bowel Movements 2 Laboratory Tests 12/26/16 05:45: White Blood Count 6.3, Red Blood Count 3.34L, Hemoglobin 10.9L, Hematocrit 31.4L , Mean Corpuscular Volume 94, Mean Corpuscular Hemoglobin 32.5H, Mean Corpuscular Hemoglobin Concent 34.6, Red Cell Distribution Width 13.4, Platelet Count 80L, Mean Platelet Volume 9.8, Neutrophils (%) (Auto) , Lymphocytes (%) ( Auto) , Monocytes (%) (Auto) , Eosinophils (%) (Auto) , Basophils (%) (Auto) , Differential Total Cells Counted 100, Neutrophils % (Manual) 52, Lymphocytes % ( Manual) 41, Monocytes % (Manual) 2, Eosinophils % (Manual) 1, Basophils % ( Manual) 0, Band Neutrophils 4, Platelet Estimate DecreasedL, Platelet Morphology Normal, Red Blood Cell Morphology Normal, Sodium Level 139, Potassium Level 3.7, Chloride Level 93L, Carbon Dioxide Level 36H, Anion Gap 10 , Blood Urea Nitrogen 46H, Creatinine 1.6H, Estimat Glomerular Filtration Rate , Glucose Level 90, Calcium Level 9.4, Total Bilirubin 0.8, Aspartate Amino Transf (AST/SGOT) 15, Alanine Aminotransferase (ALT/SGPT) 13, Alkaline Phosphatase 51, Total Protein 6.0L, Albumin 3.7, Globulin 2.3, Albumin/Globulin Ratio 1.6, Triglycerides Level 122, Cholesterol Level 113, LDL Cholesterol 31L, HDL Cholesterol 58, Cholesterol/HDL Ratio 1.9L, Thyroid Stimulating Hormone (TSH ) 1.020 Height (Feet): 5 Height (Inches): 7.00 Weight (Pounds): 130 General Appearance: no apparent distress Cardiovascular: normal rate, regular rhythm Respiratory/Chest: lungs clear Abdomen: non tender, soft Extremities: trace edema LEONA BACK Dec 27, 2016 00:00
[2016-12-27] MEDS: D5 1/2NS 1,000 ML IV SCH ×2 (01:27→13:37)
[2016-12-27 04:00] VITALS: BP 103/51
[2016-12-27 07:49] VITALS: BP 109/70
[2016-12-27] MEDS: Digoxin 0.125mg tab ORAL SCH (07:58)
--- NOTE | 2016-12-27 08:04 | General Progress Note ---
Assessment/Plan Problem List: (1) UTI (urinary tract infection) ICD Codes: N39.0 - Urinary tract infection, site not specified SNOMED: 60483975 (2) Renal failure ICD Codes: N19 - Unspecified kidney failure SNOMED: 30910444 (3) Weakness ICD Codes: R53.1 - Weakness SNOMED: 90636534 Status: stable, progressing, tolerating diet Assessment/Plan ot pt diet ivf abx cbc bmp am Subjective Constitutional: Reports: weakness Allergies: Coded Allergies: No Known Allergies (Unverified , 12/25/16) All Systems: reviewed and negative except above Subjective calm sleepy in bed Objective Last 24 Hour Vital Signs Date Time Temp Pulse Resp B/P Pulse Ox O2 Delivery O2 Flow Rate FiO2 12/27/16 07:58 57 109/70 12/27/16 07:58 57 12/27/16 07:49 98.0 57 18 109/70 100 Room Air 12/27/16 04:00 97.7 109 20 103/51 91 Room Air 12/27/16 00:00 98.2 65 20 129/76 97 Room Air 12/26/16 21:25 68 122/83 12/26/16 20:00 97.7 68 20 122/83 97 Room Air 12/26/16 15:57 97.6 56 14 116/49 98 Room Air 12/26/16 11:45 97.0 98 18 92/65 99 Room Air 12/26/16 09:00 55 97/48 12/26/16 09:00 55 12/26/16 08:21 97.5 55 16 97/48 100 Nasal Cannula Intake and Output 12/26/16 12/27/16 19:00 07:00 Intake Total 2025 ml 895 ml Balance 2025 ml 895 ml Intake Oral 1350 ml 520 ml IV Total 675 ml 375 ml # Voids 2 2 # Bowel Movements 2 Height (Feet): 5 Height (Inches): 7.00 Weight (Pounds): 130 General Appearance: lethargic EENT: normal ENT inspection Neck: normal alignment Cardiovascular: normal peripheral pulses, normal rate, regular rhythm Respiratory/Chest: chest wall non-tender, lungs clear, normal breath sounds Abdomen: normal bowel sounds, non tender, soft Extremities: normal inspection Edema: no edema noted Arm (L), no edema noted Arm (R), no edema noted Leg (L), no edema noted Leg (R), no edema noted Pedal (L), no edema noted Pedal (R), no edema noted Generalized Neurologic: motor weakness Skin: normal pigmentation, warm/dry AGNIESZKA BURNS Dec 27, 2016 08:04
--- NOTE | 2016-12-27 11:14 | Nephrology Progress Note ---
Assessment/Plan Problem List: (1) Dehydration (2) Renal failure (3) Weakness (4) UTI (urinary tract infection) Assessment: f/u ucx. Plan cont IVF. Cr sl improving. cont to monitor closely. Subjective Subjective appears comfortable. no acute events. Objective Objective Last 24 Hour Vital Signs Date Time Temp Pulse Resp B/P Pulse Ox O2 Delivery O2 Flow Rate FiO2 12/27/16 07:58 57 109/70 12/27/16 07:58 57 12/27/16 07:49 98.0 57 18 109/70 100 Room Air 12/27/16 04:00 97.7 109 20 103/51 91 Room Air 12/27/16 00:00 98.2 65 20 129/76 97 Room Air 12/26/16 21:25 68 122/83 12/26/16 20:00 97.7 68 20 122/83 97 Room Air 12/26/16 15:57 97.6 56 14 116/49 98 Room Air 12/26/16 11:45 97.0 98 18 92/65 99 Room Air Intake and Output 12/26/16 12/27/16 19:00 07:00 Intake Total 2025 ml 1045 ml Balance 2025 ml 1045 ml Intake Oral 1350 ml 520 ml IV Total 675 ml 525 ml # Voids 2 2 # Bowel Movements 2 Height (Feet): 5 Height (Inches): 7.00 Weight (Pounds): 130 General Appearance: no apparent distress Cardiovascular: normal rate, regular rhythm Respiratory/Chest: lungs clear Abdomen: non tender, soft LEONA BACK Dec 27, 2016 11:14
--- NOTE | 2016-12-27 11:59 | Pulmonology Progress Note ---
Assessment/Plan Assessment/Plan ASSESSMENT ATN on CKD dehydration weakness PAF CHF hyperlipidemia seizure disorder elevated CEA thrombocytopenia anemia PLAN OF CARE [place] floor IVF monitor renal parameters, lytes, creat slightly down avoid nephrotoxic renal US - no hydro, normal bilateral echogenicity nephro eval noted fup with cx ( done in ED), no abx for now, no clinical evidence of infection resumed Digoxin and Coreg continue statin, lipid panel stable seizure precautions, continue Depakote monitor HH, with small trend down, monitor, recommend outpt GI procedures for elevated CEA PT/OT/ST eval and Rx PLT trending down, dc Depakote ( likely contributing) , monitor PLT counts anemia workup , closely monitor HH dietary eval calorie count according to POLST patient is DNR/DNI status with focus on comfort measures case discussed and evaluated by supervising physician Subjective Allergies: Coded Allergies: No Known Allergies (Unverified , 12/25/16) Subjective afebrile, no leucocytosis no signs of respiratory distress no chest pain, no SOB, no dizziness no abdominal pain, no flank pain renal parameters with small improvement only more awake and responsive today Objective Last 24 Hour Vital Signs Date Time Temp Pulse Resp B/P Pulse Ox O2 Delivery O2 Flow Rate FiO2 12/27/16 07:58 57 109/70 12/27/16 07:58 57 12/27/16 07:49 98.0 57 18 109/70 100 Room Air 12/27/16 04:00 97.7 109 20 103/51 91 Room Air 12/27/16 00:00 98.2 65 20 129/76 97 Room Air 12/26/16 21:25 68 122/83 12/26/16 20:00 97.7 68 20 122/83 97 Room Air 12/26/16 15:57 97.6 56 14 116/49 98 Room Air Intake and Output 12/26/16 12/27/16 18:59 06:59 Intake Total 2025 ml 895 ml Balance 2025 ml 895 ml Intake Oral 1350 ml 520 ml IV Total 675 ml 375 ml # Voids 2 2 # Bowel Movements 2 Objective General Appearance: chronically debilitated awake, alert, confused male, Lines, tubes and drains: peripheral HEENT: normocephalic, atraumatic, anicteric Neck: supple Respiratory/Chest: lungs clear, no accessory muscle use Cardiovascular/Chest: normal rate, regular rhythm Abdomen: normal bowel sounds, non tender, soft Extremities: no calf tenderness Skin Exam: warm/dry Neurologic: abnormal gait Musculoskeletal: atrophy BLE Microbiology Date/Time Source Procedure Growth Status 12/25/16 01:45 Blood Blood Culture - Preliminary NO GROWTH AFTER 48 HOURS Resulted 12/25/16 01:30 Blood Blood Culture - Preliminary NO GROWTH AFTER 48 HOURS Resulted 12/25/16 03:30 Nasal Nares MRSA Culture - Final NO METHICILLIN RESISTANT STAPH AUREUS... Complete 12/25/16 03:30 Rectum VRE Culture - Final NO VANCOMYCIN RESISTANT ENTEROCOCCUS ... Complete Current Medications Medications (Trade) Dose Ordered Sig/Holly Route PRN Reason Start Time Stop Time Status Last Admin Dose Admin Acetaminophen (Tylenol) 650 mg Q4H PRN ORAL fever>100.5 12/25/16 08:00 01/24/17 07:59 Al Hydroxide/Mg Hydroxide 30 ml 30 ml Q6H PRN ORAL dyspepsia 12/25/16 08:00 01/24/17 07:59 Carvedilol (Coreg) 3.125 mg EVERY 12 HOURS ORAL 12/25/16 21:00 01/24/17 20:59 12/26/16 21:25 Dextrose (Dextrose 50%) STAT PRN IV Hypoglycemia 12/25/16 08:00 01/24/17 07:59 Dextrose/Sodium Chloride (D5 0.45% NS) 1,000 ml @ 75 mls/hr [id number] IV 12/25/16 08:00 01/24/17 07:59 12/27/16 01:27 Digoxin (Lanoxin) 0.125 mg DAILY ORAL 12/25/16 09:00 01/24/17 08:59 12/25/16 09:22 Lorazepam (Ativan 2mg/ml 1ml) 0.5 mg Q4H PRN IV For Anxiety 12/25/16 08:00 01/01/17 07:59 Morphine Sulfate (Morphine Sulfate) 1 mg Q4H PRN IVP For Pain 12/25/16 08:00 01/01/17 07:59 Ondansetron HCl (Zofran) 4 mg Q6H PRN IVP Nausea & Vomiting 12/25/16 08:00 01/24/17 07:59 Polyethylene Glycol (Miralax) 17 gm HSPRN PRN ORAL Constipation 12/25/16 21:00 3/5/17 20:59 Pravastatin Sodium (Pravachol) 20 mg BEDTIME ORAL 12/25/16 21:00 01/24/17 20:59 12/26/16 21:25 Zolpidem Tartrate (Ambien) 5 mg HSPRN PRN ORAL Insomnia 12/25/16 21:00 01/24/17 20:59 Nicanor ([facility])Pallavi NP Dec 27, 2016 11:59
[2016-12-27 16:11] VITALS: BP 115/62
[2016-12-27] MEDS: Memantine 5 MG TAB ORAL SCH (18:15)
[2016-12-27 20:00] VITALS: BP 118/60
--- NOTE | 2016-12-27 23:37 | Consultation ---
DATE OF CONSULTATION: 12/25/2016 HISTORY OF PRESENT ILLNESS: This is a 76-year-old male patient, came into [facility] with significant agitation, confusion, and disorganized thought process. Cognition has declined below baseline, confused. No logical plan for his own self-care. His cognition has declined below baseline. So there was a psychiatric consultation requested for this patient. He is irritable and agitated at bedside. He is really a very poor historian. ALLERGIES: No known drug allergies. PAST MEDICAL HISTORY: Renal failure. SUBSTANCE ABUSE HISTORY: Denies drug and alcohol use. SOCIAL HISTORY: The patient is financially supported by [employer] and [employer]. Unable to give me any information about other conditions. PSYCHIATRIC HISTORY: Paranoid schizophrenia. MENTAL STATUS EXAMINATION: The patient is a 76-year-old male with psychomotor agitation. Mood is irritable and agitated. Affect guarded and restricted. Thought process is organized and illogical. No signs of any suicidal or homicidal thoughts. Insight and judgment is poor. DIAGNOSES: Paranoid schizophrenia, acute exacerbation. PLAN: Treat him with a psychotropic medication regimen consisting of Ativan as needed to reduce agitation and anxiety. psychology consultation. Chart reviewed and discussed with staff. Seen and assessed at bedside. Tierra Mills M.D. DR: Lopez JOB#: [id number] CC:
[2016-12-28] VITALS (7 sets, daily range): BP systolic 92–134; BP diastolic 52–103
[2016-12-28] MEDS: D5 1/2NS 1,000 ML IV SCH ×2 (03:24→16:00)
--- NOTE | 2016-12-28 03:27 | Progress Note ---
DATE: 12/27/2016 I am going to start him on Namenda 5 mg twice a day to prevent any further decline in his cognition and his cognition has declined below baseline. Chart reviewed and discussed with staff. Seen and assessed at bedside. Tierra Mills M.D. DR: KIKE JOB#: [id number] CC:
--- NOTE | 2016-12-28 04:18 | Consultation ---
DATE OF CONSULTATION: 12/26/2016 HISTORY: Treat this patient with psychotropic medications to prevent any further decline in his cognition. He will continue to be followed by Psychiatry throughout his hospital course. Chart reviewed. Discussed with staff. The patient was seen and assessed at bedside. He is to continue to be followed by Psychiatry throughout the hospital course. I am going to continue to treat this patient with psychotropic medications. The patient given Ativan to reduce anxiety and also to reduce agitation. Tierra Mills M.D. DR: EMIL JOB#: [id number] CC:
[2016-12-28 07:16] LABS: MEAN CORPUSCULAR HGB CONC 34.2 G/DL (32.0-36.0); MEAN CORPUSCULAR VOLUME 94 FL (80-99); MEAN PLATELET VOLUME 11.8 FL (6.5-10.1); PLATELET COUNT 68 K/UL (150-450); RED BLOOD COUNT 3.21 M/UL (4.70-6.10); RED CELL DISTRIBUTION WIDTH 13.6 % (11.6-14.8); WHITE BLOOD COUNT 5.9 K/UL (4.8-10.8)
[2016-12-28 07:26] LABS: ANION GAP 10 (5-15); CALCIUM 8.3 mg/dL (8.6-10.2); CARBON DIOXIDE 31 mEQ/L (20-30); CHLORIDE 95 mEQ/L (98-107); CREATININE 1.4 mg/dL (0.7-1.2); HEMOLYSIS 10; POTASSIUM 3.6 mEQ/L (3.4-4.9); SODIUM 136 mEQ/L (135-145)
[2016-12-28] MEDS: Digoxin 0.125mg tab ORAL SCH (08:22)
[2016-12-28] MEDS: Memantine 5 MG TAB ORAL SCH ×2 (08:22→19:49)
[2016-12-28 08:40] LABS: BAND NEUTROPHILS % (MANUAL) 0 % (0-8); BASOPHILS % (MANUAL) 0 % (0-2); EOSINOPHILS % (MANUAL) 1 % (0-3); LYMPHOCYTES % (MANUAL) 29 % (20-45); NEUTROPHILS % (MANUAL) 64 % (45-75); PLATELET ESTIMATE DECREASED; PLATELET MORPHOLOGY NORMAL; TOTAL CELLS COUNTED 100
[2016-12-28 08:47] LABS: CORTISOL LC 17.7 ug/dL (.)
[2016-12-28] MEDS ORDERED: Memantine 10mg tab ORAL SCH (09:00)
--- NOTE | 2016-12-28 15:45 | Pulmonology Progress Note ---
Assessment/Plan Problems: (1) Renal failure (2) ICD (implantable cardioverter-defibrillator) in place (3) Dehydration (4) Weakness Assessment/Plan IV fluids check electrolytes no sign of CHF DNR is appropiate Subjective ROS Limited/Unobtainable: No Interval Events: comfortable, confused Allergies: Coded Allergies: No Known Allergies (Unverified , 12/25/16) Objective Last 24 Hour Vital Signs Date Time Temp Pulse Resp B/P Pulse Ox O2 Delivery O2 Flow Rate FiO2 12/28/16 12:15 97.5 60 21 101/52 96 Room Air 12/28/16 08:22 80 92/52 12/28/16 08:22 80 12/28/16 07:58 97.8 80 21 92/52 95 Room Air 12/28/16 04:00 97.5 57 16 108/69 100 Room Air 12/28/16 00:00 96.8 55 16 99/71 98 Room Air 12/27/16 21:29 56 118/60 12/27/16 20:00 97.4 56 16 118/60 96 Room Air 12/27/16 16:11 97.5 54 14 115/62 97 Room Air Intake and Output 12/27/16 12/28/16 19:00 07:00 Intake Total 1175 ml 1025 ml Balance 1175 ml 1025 ml Intake Oral 200 ml 200 ml IV Total 975 ml 825 ml # Voids 3 1 # Bowel Movements 1 General Appearance: WD/WN HEENT: normocephalic Respiratory/Chest: chest wall non-tender, normal breath sounds Cardiovascular: normal peripheral pulses, normal rate Abdomen: normal bowel sounds, no organomegaly Extremities: no cyanosis Skin: no rash, no lesions Laboratory Tests 12/28/16 06:00: White Blood Count 5.9, Red Blood Count 3.21L, Hemoglobin 10.3L, Hematocrit 30.1L , Mean Corpuscular Volume 94, Mean Corpuscular Hemoglobin 32.0H, Mean Corpuscular Hemoglobin Concent 34.2, Red Cell Distribution Width 13.6, Platelet Count 68L, Mean Platelet Volume 11.8H, Neutrophils (%) (Auto) , Lymphocytes (%) (Auto) , Monocytes (%) (Auto) , Eosinophils (%) (Auto) , Basophils (%) (Auto) , Differential Total Cells Counted 100, Neutrophils % (Manual) 64, Lymphocytes % ( Manual) 29, Monocytes % (Manual) 6, Eosinophils % (Manual) 1, Basophils % ( Manual) 0, Band Neutrophils 0, Platelet Estimate DecreasedL, Platelet Morphology Normal, Red Blood Cell Morphology Normal, Sodium Level 136, Potassium Level 3.6, Chloride Level 95L, Carbon Dioxide Level 31H, Anion Gap 10 , Blood Urea Nitrogen 32H, Creatinine 1.4H, Estimat Glomerular Filtration Rate , Glucose Level 94, Calcium Level 8.3L Current Medications Medications (Trade) Dose Ordered Sig/Holly Route PRN Reason Start Time Stop Time Status Last Admin Dose Admin Acetaminophen (Tylenol) 650 mg Q4H PRN ORAL fever>100.5 12/25/16 08:00 01/24/17 07:59 Al Hydroxide/Mg Hydroxide 30 ml 30 ml Q6H PRN ORAL dyspepsia 12/25/16 08:00 01/24/17 07:59 Carvedilol (Coreg) 3.125 mg EVERY 12 HOURS ORAL 12/25/16 21:00 01/24/17 20:59 12/27/16 21:29 Dextrose (Dextrose 50%) STAT PRN IV Hypoglycemia 12/25/16 08:00 01/24/17 07:59 Dextrose/Sodium Chloride (D5 0.45% NS) 1,000 ml @ 75 mls/hr [id number] IV 12/25/16 08:00 01/24/17 07:59 12/28/16 03:24 Digoxin (Lanoxin) 0.125 mg DAILY ORAL 12/25/16 09:00 01/24/17 08:59 12/28/16 08:22 Lorazepam (Ativan 2mg/ml 1ml) 0.5 mg Q4H PRN IV For Anxiety 12/25/16 08:00 01/01/17 07:59 Memantine (Namenda) 5 mg BID ORAL 12/27/16 18:00 01/26/17 17:59 12/28/16 08:22 Morphine Sulfate (Morphine Sulfate) 1 mg Q4H PRN IVP For Pain 12/25/16 08:00 01/01/17 07:59 Ondansetron HCl (Zofran) 4 mg Q6H PRN IVP Nausea & Vomiting 12/25/16 08:00 01/24/17 07:59 Polyethylene Glycol (Miralax) 17 gm HSPRN PRN ORAL Constipation 12/25/16 21:00 01/24/17 20:59 Pravastatin Sodium (Pravachol) 20 mg BEDTIME ORAL 12/25/16 21:00 01/24/17 20:59 12/27/16 21:29 Zolpidem Tartrate (Ambien) 5 mg HSPRN PRN ORAL Insomnia 12/25/16 21:00 01/24/17 20:59 ANDREIA BERTRAND Dec 28, 2016 15:45
--- NOTE | 2016-12-28 15:48 | General Progress Note ---
Assessment/Plan Problem List: (1) UTI (urinary tract infection) ICD Codes: N39.0 - Urinary tract infection, site not specified SNOMED: 08908808 (2) Renal failure ICD Codes: N19 - Unspecified kidney failure SNOMED: 66753506 (3) Weakness ICD Codes: R53.1 - Weakness SNOMED: 94157146 Status: stable, progressing, tolerating diet Assessment/Plan ot pt diet ivf abx cbc bmp am dc plan Subjective Constitutional: Reports: weakness Allergies: Coded Allergies: No Known Allergies (Unverified , 12/25/16) All Systems: reviewed and negative except above Subjective calm sleepy in bed Objective Last 24 Hour Vital Signs Date Time Temp Pulse Resp B/P Pulse Ox O2 Delivery O2 Flow Rate FiO2 12/28/16 12:15 97.5 60 21 101/52 96 Room Air 12/28/16 08:22 80 92/52 12/28/16 08:22 80 12/28/16 07:58 97.8 80 21 92/52 95 Room Air 12/28/16 04:00 97.5 57 16 108/69 100 Room Air 12/28/16 00:00 96.8 55 16 99/71 98 Room Air 12/27/16 21:29 56 118/60 12/27/16 20:00 97.4 56 16 118/60 96 Room Air 12/27/16 16:11 97.5 54 14 115/62 97 Room Air Intake and Output 12/27/16 12/28/16 19:00 07:00 Intake Total 1175 ml 1025 ml Balance 1175 ml 1025 ml Intake Oral 200 ml 200 ml IV Total 975 ml 825 ml # Voids 3 1 # Bowel Movements 1 Laboratory Tests 12/28/16 06:00: White Blood Count 5.9, Red Blood Count 3.21L, Hemoglobin 10.3L, Hematocrit 30.1L , Mean Corpuscular Volume 94, Mean Corpuscular Hemoglobin 32.0H, Mean Corpuscular Hemoglobin Concent 34.2, Red Cell Distribution Width 13.6, Platelet Count 68L, Mean Platelet Volume 11.8H, Neutrophils (%) (Auto) , Lymphocytes (%) (Auto) , Monocytes (%) (Auto) , Eosinophils (%) (Auto) , Basophils (%) (Auto) , Differential Total Cells Counted 100, Neutrophils % (Manual) 64, Lymphocytes % ( Manual) 29, Monocytes % (Manual) 6, Eosinophils % (Manual) 1, Basophils % ( Manual) 0, Band Neutrophils 0, Platelet Estimate DecreasedL, Platelet Morphology Normal, Red Blood Cell Morphology Normal, Sodium Level 136, Potassium Level 3.6, Chloride Level 95L, Carbon Dioxide Level 31H, Anion Gap 10 , Blood Urea Nitrogen 32H, Creatinine 1.4H, Estimat Glomerular Filtration Rate , Glucose Level 94, Calcium Level 8.3L Height (Feet): 5 Height (Inches): 7.00 Weight (Pounds): 130 General Appearance: lethargic EENT: normal ENT inspection Neck: normal alignment Cardiovascular: normal peripheral pulses, normal rate, regular rhythm Respiratory/Chest: chest wall non-tender, lungs clear, normal breath sounds Abdomen: normal bowel sounds, non tender, soft Neurologic: motor weakness Skin: normal pigmentation, warm/dry AGNIESZKA BURNS Dec 28, 2016 15:48
[2016-12-28] MEDS ORDERED: D5 1/2NS 1000ml IV ONE (16:03)
--- NOTE | 2016-12-28 18:15 | Nephrology Progress Note ---
Assessment/Plan Problem List: (1) Dehydration (2) Renal failure (3) Weakness (4) UTI (urinary tract infection) (5) ICD (implantable cardioverter-defibrillator) in place Plan Renal function improved Monitor BUN/cr Monitor lytes Avoid nephrotoxic agents AM labs Subjective ROS Limited/Unobtainable: Yes Subjective in bed, mumbles, in no apparent distress Objective Objective Last 24 Hour Vital Signs Date Time Temp Pulse Resp B/P Pulse Ox O2 Delivery O2 Flow Rate FiO2 12/28/16 16:15 97.3 68 20 120/62 95 Room Air 12/28/16 12:15 97.5 60 21 101/52 96 Room Air 12/28/16 08:22 80 92/52 12/28/16 08:22 80 12/28/16 07:58 97.8 80 21 92/52 95 Room Air 12/28/16 04:00 97.5 57 16 108/69 100 Room Air 12/28/16 00:00 96.8 55 16 99/71 98 Room Air 12/27/16 21:29 56 118/60 12/27/16 20:00 97.4 56 16 118/60 96 Room Air Intake and Output 12/27/16 12/28/16 19:00 07:00 Intake Total 1175 ml 1025 ml Balance 1175 ml 1025 ml Intake Oral 200 ml 200 ml IV Total 975 ml 825 ml # Voids 3 1 # Bowel Movements 1 Laboratory Tests 12/28/16 06:00: White Blood Count 5.9, Red Blood Count 3.21L, Hemoglobin 10.3L, Hematocrit 30.1L , Mean Corpuscular Volume 94, Mean Corpuscular Hemoglobin 32.0H, Mean Corpuscular Hemoglobin Concent 34.2, Red Cell Distribution Width 13.6, Platelet Count 68L, Mean Platelet Volume 11.8H, Neutrophils (%) (Auto) , Lymphocytes (%) (Auto) , Monocytes (%) (Auto) , Eosinophils (%) (Auto) , Basophils (%) (Auto) , Differential Total Cells Counted 100, Neutrophils % (Manual) 64, Lymphocytes % ( Manual) 29, Monocytes % (Manual) 6, Eosinophils % (Manual) 1, Basophils % ( Manual) 0, Band Neutrophils 0, Platelet Estimate DecreasedL, Platelet Morphology Normal, Red Blood Cell Morphology Normal, Sodium Level 136, Potassium Level 3.6, Chloride Level 95L, Carbon Dioxide Level 31H, Anion Gap 10 , Blood Urea Nitrogen 32H, Creatinine 1.4H, Estimat Glomerular Filtration Rate , Glucose Level 94, Calcium Level 8.3L Height (Feet): 5 Height (Inches): 7.00 Weight (Pounds): 130 General Appearance: no apparent distress EENT: normal ENT inspection Neck: normal alignment Cardiovascular: regular rhythm, regularly irregular, no JVD Respiratory/Chest: normal breath sounds, no respiratory distress Abdomen: non tender, soft, no organomegaly, no mass Neurologic: motor weakness, disoriented Negar Nelson N.P. Dec 28, 2016 18:15
[2016-12-29] VITALS: BP 125/55
[2016-12-29 04:00] VITALS: BP 127/62
[2016-12-29] MEDS: D5 1/2NS 1,000 ML IV SCH ×2 (04:46→18:23)
[2016-12-29 07:11] LABS: ANION GAP 9 (5-15); CALCIUM 8.6 mg/dL (8.6-10.2); CARBON DIOXIDE 31 mEQ/L (20-30); CHLORIDE 96 mEQ/L (98-107); CREATININE 1.1 mg/dL (0.7-1.2); HEMOLYSIS 6; POTASSIUM 4.3 mEQ/L (3.4-4.9); SODIUM 136 mEQ/L (135-145)
[2016-12-29 07:14] LABS: MEAN CORPUSCULAR HEMOGLOBIN 33.4 PG (27.0-31.0); MEAN CORPUSCULAR HGB CONC 35.4 G/DL (32.0-36.0); MEAN CORPUSCULAR VOLUME 94 FL (80-99); MEAN PLATELET VOLUME 10.4 FL (6.5-10.1); PLATELET COUNT 73 K/UL (150-450); RED BLOOD COUNT 3.25 M/UL (4.70-6.10); RED CELL DISTRIBUTION WIDTH 13.5 % (11.6-14.8); WHITE BLOOD COUNT 6.3 K/UL (4.8-10.8)
[2016-12-29 07:54] VITALS: BP 118/70
[2016-12-29 07:55] LABS: LYMPHOCYTES % (MANUAL) 24 % (20-45); NEUTROPHILS % (MANUAL) 73 % (45-75); TOTAL CELLS COUNTED 100
[2016-12-29 07:57] LABS: BAND NEUTROPHILS % (MANUAL) 0 % (0-8); BASOPHILS % (MANUAL) 0 % (0-2); EOSINOPHILS % (MANUAL) 0 % (0-3); PLATELET ESTIMATE DECREASED; PLATELET MORPHOLOGY NORMAL
[2016-12-29] MEDS: Memantine 5 MG TAB ORAL SCH ×2 (08:57→18:23)
[2016-12-29] MEDS: Digoxin 0.125mg tab ORAL SCH (08:57)
--- NOTE | 2016-12-29 11:03 | Nephrology Progress Note ---
Assessment/Plan Problem List: (1) Dehydration (2) Renal failure (3) Weakness (4) UTI (urinary tract infection) (5) ICD (implantable cardioverter-defibrillator) in place Plan no ucx. cont IVF. likely can d/c soon. renal function improved. Subjective Subjective no overnight events. appears comfortable. IVF running. Objective Objective Last 24 Hour Vital Signs Date Time Temp Pulse Resp B/P Pulse Ox O2 Delivery O2 Flow Rate FiO2 12/29/16 08:57 61 12/29/16 08:56 61 118/70 12/29/16 07:54 97.9 61 21 118/70 95 Room Air 12/29/16 04:00 60 20 127/62 99 Room Air 12/29/16 00:00 96.8 60 18 125/55 99 Room Air 12/28/16 21:54 134/55 12/28/16 21:05 85 129/103 12/28/16 20:00 97.7 85 20 129/103 99 Room Air 12/28/16 16:15 97.3 68 20 120/62 95 Room Air 12/28/16 12:15 97.5 60 21 101/52 96 Room Air Intake and Output 12/28/16 12/29/16 19:00 07:00 Intake Total 1320 ml 450 ml Balance 1320 ml 450 ml Intake Oral 720 ml IV Total 600 ml 450 ml Laboratory Tests 12/29/16 06:00: White Blood Count 6.3, Red Blood Count 3.25L, Hemoglobin 10.8L, Hematocrit 30.6L , Mean Corpuscular Volume 94, Mean Corpuscular Hemoglobin 33.4H, Mean Corpuscular Hemoglobin Concent 35.4, Red Cell Distribution Width 13.5, Platelet Count 73L, Mean Platelet Volume 10.4H, Neutrophils (%) (Auto) , Lymphocytes (%) (Auto) , Monocytes (%) (Auto) , Eosinophils (%) (Auto) , Basophils (%) (Auto) , Differential Total Cells Counted 100, Neutrophils % (Manual) 73, Lymphocytes % ( Manual) 24, Monocytes % (Manual) 3, Eosinophils % (Manual) 0, Basophils % ( Manual) 0, Band Neutrophils 0, Platelet Estimate DecreasedL, Platelet Morphology Normal, Red Blood Cell Morphology Normal, Sodium Level 136, Potassium Level 4.3, Chloride Level 96L, Carbon Dioxide Level 31H, Anion Gap 9, Blood Urea Nitrogen 22, Creatinine 1.1, Estimat Glomerular Filtration Rate , Glucose Level 90, Calcium Level 8.6, Digoxin Level 1.4 Height (Feet): 5 Height (Inches): 7.00 Weight (Pounds): 130 General Appearance: no apparent distress Cardiovascular: normal rate, regular rhythm Respiratory/Chest: lungs clear Abdomen: non tender, soft OWEN MORALES Dec 29, 2016 11:03
[2016-12-29 11:58] VITALS: BP 109/59
--- NOTE | 2016-12-29 13:01 | General Progress Note ---
Assessment/Plan Problem List: (1) UTI (urinary tract infection) ICD Codes: N39.0 - Urinary tract infection, site not specified SNOMED: 50177322 (2) Renal failure ICD Codes: N19 - Unspecified kidney failure SNOMED: 76791347 (3) Weakness ICD Codes: R53.1 - Weakness SNOMED: 99030079 Status: stable, progressing, tolerating diet Assessment/Plan ot pt diet ivf abx cbc bmp am psyc transfer Subjective Constitutional: Reports: weakness Allergies: Coded Allergies: No Known Allergies (Unverified , 12/25/16) All Systems: reviewed and negative except above Subjective calm sleepy in bed confused Objective Last 24 Hour Vital Signs Date Time Temp Pulse Resp B/P Pulse Ox O2 Delivery O2 Flow Rate FiO2 12/29/16 11:58 98.0 56 19 109/59 95 Room Air 12/29/16 08:57 61 12/29/16 08:56 61 118/70 12/29/16 07:54 97.9 61 21 118/70 95 Room Air 12/29/16 04:00 60 20 127/62 99 Room Air 12/29/16 00:00 96.8 60 18 125/55 99 Room Air 12/28/16 21:54 134/55 12/28/16 21:05 85 129/103 12/28/16 20:00 97.7 85 20 129/103 99 Room Air 12/28/16 16:15 97.3 68 20 120/62 95 Room Air Intake and Output 12/28/16 12/29/16 19:00 07:00 Intake Total 1320 ml 450 ml Balance 1320 ml 450 ml Intake Oral 720 ml IV Total 600 ml 450 ml Laboratory Tests 12/29/16 06:00: White Blood Count 6.3, Red Blood Count 3.25L, Hemoglobin 10.8L, Hematocrit 30.6L , Mean Corpuscular Volume 94, Mean Corpuscular Hemoglobin 33.4H, Mean Corpuscular Hemoglobin Concent 35.4, Red Cell Distribution Width 13.5, Platelet Count 73L, Mean Platelet Volume 10.4H, Neutrophils (%) (Auto) , Lymphocytes (%) (Auto) , Monocytes (%) (Auto) , Eosinophils (%) (Auto) , Basophils (%) (Auto) , Differential Total Cells Counted 100, Neutrophils % (Manual) 73, Lymphocytes % ( Manual) 24, Monocytes % (Manual) 3, Eosinophils % (Manual) 0, Basophils % ( Manual) 0, Band Neutrophils 0, Platelet Estimate DecreasedL, Platelet Morphology Normal, Red Blood Cell Morphology Normal, Sodium Level 136, Potassium Level 4.3, Chloride Level 96L, Carbon Dioxide Level 31H, Anion Gap 9, Blood Urea Nitrogen 22, Creatinine 1.1, Estimat Glomerular Filtration Rate , Glucose Level 90, Calcium Level 8.6, Digoxin Level 1.4 Height (Feet): 5 Height (Inches): 7.00 Weight (Pounds): 130 General Appearance: lethargic, confused EENT: normal ENT inspection Neck: normal alignment Cardiovascular: normal peripheral pulses, normal rate, regular rhythm Respiratory/Chest: chest wall non-tender, lungs clear, normal breath sounds Abdomen: normal bowel sounds, non tender, soft Extremities: normal inspection Edema: no edema noted Arm (L), no edema noted Arm (R), no edema noted Leg (L), no edema noted Leg (R), no edema noted Pedal (L), no edema noted Pedal (R), no edema noted Generalized Neurologic: motor weakness Skin: normal pigmentation, warm/dry AGNIESZKA BURNS Dec 29, 2016 13:01
--- NOTE | 2016-12-29 14:24 | Pulmonology Progress Note ---
Assessment/Plan Problems: (1) Renal failure (2) ICD (implantable cardioverter-defibrillator) in place (3) Dehydration (4) Weakness Assessment/Plan bun/creatinine are decresing afebrile, wbc wnl IV fluids check electrolytes no sign of CHF DNR is appropiate dvt prophylaxis Subjective ROS Limited/Unobtainable: No Constitutional: Reports: no symptoms HEENT: Repors: no symptoms Respiratory: Reports: no symptoms Allergies: Coded Allergies: No Known Allergies (Unverified , 12/25/16) Objective Last 24 Hour Vital Signs Date Time Temp Pulse Resp B/P Pulse Ox O2 Delivery O2 Flow Rate FiO2 12/29/16 11:58 98.0 56 19 109/59 95 Room Air 12/29/16 08:57 61 12/29/16 08:56 61 118/70 12/29/16 07:54 97.9 61 21 118/70 95 Room Air 12/29/16 04:00 60 20 127/62 99 Room Air 12/29/16 00:00 96.8 60 18 125/55 99 Room Air 12/28/16 21:54 134/55 12/28/16 21:05 85 129/103 12/28/16 20:00 97.7 85 20 129/103 99 Room Air 12/28/16 16:15 97.3 68 20 120/62 95 Room Air Intake and Output 12/28/16 12/29/16 19:00 07:00 Intake Total 1320 ml 525 ml Balance 1320 ml 525 ml Intake Oral 720 ml IV Total 600 ml 525 ml General Appearance: WD/WN HEENT: normocephalic, atraumatic Respiratory/Chest: chest wall non-tender, lungs clear Cardiovascular: normal peripheral pulses, normal rate Abdomen: normal bowel sounds, soft, non tender Extremities: no cyanosis, no clubbing Neurologic/Psychiatric: director telemetry II-XII grossly normal, no motor/sensory deficits Laboratory Tests 12/29/16 06:00: White Blood Count 6.3, Red Blood Count 3.25L, Hemoglobin 10.8L, Hematocrit 30.6L , Mean Corpuscular Volume 94, Mean Corpuscular Hemoglobin 33.4H, Mean Corpuscular Hemoglobin Concent 35.4, Red Cell Distribution Width 13.5, Platelet Count 73L, Mean Platelet Volume 10.4H, Neutrophils (%) (Auto) , Lymphocytes (%) (Auto) , Monocytes (%) (Auto) , Eosinophils (%) (Auto) , Basophils (%) (Auto) , Differential Total Cells Counted 100, Neutrophils % (Manual) 73, Lymphocytes % ( Manual) 24, Monocytes % (Manual) 3, Eosinophils % (Manual) 0, Basophils % ( Manual) 0, Band Neutrophils 0, Platelet Estimate DecreasedL, Platelet Morphology Normal, Red Blood Cell Morphology Normal, Sodium Level 136, Potassium Level 4.3, Chloride Level 96L, Carbon Dioxide Level 31H, Anion Gap 9, Blood Urea Nitrogen 22, Creatinine 1.1, Estimat Glomerular Filtration Rate , Glucose Level 90, Calcium Level 8.6, Digoxin Level 1.4 Current Medications Medications (Trade) Dose Ordered Sig/Holly Route PRN Reason Start Time Stop Time Status Last Admin Dose Admin Acetaminophen (Tylenol) 650 mg Q4H PRN ORAL fever>100.5 12/25/16 08:00 01/24/17 07:59 Al Hydroxide/Mg Hydroxide 30 ml 30 ml Q6H PRN ORAL dyspepsia 12/25/16 08:00 01/24/17 07:59 Carvedilol (Coreg) 3.125 mg EVERY 12 HOURS ORAL 12/25/16 21:00 01/24/17 20:59 12/29/16 08:56 Dextrose (Dextrose 50%) STAT PRN IV Hypoglycemia 12/25/16 08:00 01/24/17 07:59 Dextrose/Sodium Chloride (D5 0.45% NS) 1,000 ml @ 75 mls/hr [id number] IV 12/25/16 08:00 01/24/17 07:59 12/29/16 04:46 Digoxin (Lanoxin) 0.125 mg DAILY ORAL 12/25/16 09:00 01/24/17 08:59 12/29/16 08:57 Lorazepam (Ativan 2mg/ml 1ml) 0.5 mg Q4H PRN IV For Anxiety 12/25/16 08:00 01/01/17 07:59 Memantine (Namenda) 5 mg BID ORAL 12/27/16 18:00 01/26/17 17:59 12/29/16 08:57 Morphine Sulfate (Morphine Sulfate) 1 mg Q4H PRN IVP For Pain 12/25/16 08:00 01/01/17 07:59 Ondansetron HCl (Zofran) 4 mg Q6H PRN IVP Nausea & Vomiting 12/25/16 08:00 01/24/17 07:59 Polyethylene Glycol (Miralax) 17 gm HSPRN PRN ORAL Constipation 12/25/16 21:00 01/24/17 20:59 Pravastatin Sodium (Pravachol) 20 mg BEDTIME ORAL 12/25/16 21:00 01/24/17 20:59 12/28/16 21:05 Zolpidem Tartrate (Ambien) 5 mg HSPRN PRN ORAL Insomnia 12/25/16 21:00 01/24/17 20:59 ANDREIA BERTRAND Dec 29, 2016 14:24
[2016-12-29 15:42] VITALS: BP 126/65
[2016-12-29] MEDS: LORazepam Inj 2mg/ml 1ml IV PRN (18:30)
[2016-12-29 20:00] VITALS: BP 118/56
--- NOTE | 2016-12-29 20:25 | Cardiology Report ---
APPROVED REPORT EKG Measurement Heart [id number] Normal sinus rhythm Left anterior fascicular block Abnormal QRS-T angle, consider primary T wave abnormality Abnormal ECG
[2016-12-30] VITALS: BP 107/67
[2016-12-30 04:00] VITALS: BP 131/86
[2016-12-30 07:01] LABS: MEAN CORPUSCULAR HEMOGLOBIN 33.7 PG (27.0-31.0); MEAN CORPUSCULAR HGB CONC 36.3 G/DL (32.0-36.0); MEAN CORPUSCULAR VOLUME 93 FL (80-99); MEAN PLATELET VOLUME 9.9 FL (6.5-10.1); PLATELET COUNT 84 K/UL (150-450); RED BLOOD COUNT 3.56 M/UL (4.70-6.10); RED CELL DISTRIBUTION WIDTH 13.3 % (11.6-14.8); WHITE BLOOD COUNT 6.1 K/UL (4.8-10.8)
[2016-12-30 07:23] LABS: ANION GAP 11 (5-15); CALCIUM 8.7 mg/dL (8.6-10.2); CARBON DIOXIDE 27 mEQ/L (20-30); CHLORIDE 100 mEQ/L (98-107); HEMOLYSIS 4; POTASSIUM 4.1 mEQ/L (3.4-4.9); SODIUM 138 mEQ/L (135-145)
[2016-12-30] MEDS: D5 1/2NS 1,000 ML IV SCH ×2 (08:00→21:22)
[2016-12-30 08:04] VITALS: BP 120/66
[2016-12-30] MEDS: Memantine 5 MG TAB ORAL SCH ×3 (09:00→17:15)
[2016-12-30] MEDS: Digoxin 0.125mg tab ORAL SCH ×2 (09:00→09:09)
[2016-12-30] MEDS: LORazepam Inj 2mg/ml 1ml IV PRN ×2 (09:09→21:20)
[2016-12-30 10:17] LABS: EOSINOPHILS % (MANUAL) 2 % (0-3); LYMPHOCYTES % (MANUAL) 38 % (20-45); NEUTROPHILS % (MANUAL) 52 % (45-75); TOTAL CELLS COUNTED 100
[2016-12-30 10:18] LABS: BAND NEUTROPHILS % (MANUAL) 0 % (0-8); BASOPHILS % (MANUAL) 0 % (0-2); PLATELET ESTIMATE DECREASED; PLATELET MORPHOLOGY NORMAL
--- NOTE | 2016-12-30 11:19 | Nephrology Progress Note ---
Assessment/Plan Problem List: (1) Dehydration (2) Renal failure (3) Weakness (4) UTI (urinary tract infection) (5) ICD (implantable cardioverter-defibrillator) in place Plan Renal function - resolved Continue IVF Monitor BUN/cr Monitor lytes Avoid nephrotoxic agents AM labs Subjective ROS Limited/Unobtainable: Yes Subjective in bed asleep, per sitter, pt was agitated earlier Objective Objective Last 24 Hour Vital Signs Date Time Temp Pulse Resp B/P Pulse Ox O2 Delivery O2 Flow Rate FiO2 12/30/16 09:00 62 120/66 12/30/16 09:00 62 12/30/16 08:04 96.8 62 20 120/66 99 Room Air 12/30/16 04:00 97.4 70 18 131/86 98 Room Air 12/30/16 00:00 97.2 60 20 107/67 98 Room Air 12/29/16 21:00 60 126/65 12/29/16 20:00 97.2 72 20 118/56 98 Room Air 12/29/16 15:42 97.5 60 20 126/65 95 Room Air 12/29/16 11:58 98.0 56 19 109/59 95 Room Air Intake and Output 12/29/16 12/30/16 19:00 07:00 Intake Total 945 ml 75 ml Balance 945 ml 75 ml Intake Oral 420 ml IV Total 525 ml 75 ml # Voids 5 Laboratory Tests 12/30/16 06:10: White Blood Count 6.1, Red Blood Count 3.56L, Hemoglobin 12.0L, Hematocrit 33.0L , Mean Corpuscular Volume 93, Mean Corpuscular Hemoglobin 33.7H, Mean Corpuscular Hemoglobin Concent 36.3H, Red Cell Distribution Width 13.3, Platelet Count 84L, Mean Platelet Volume 9.9, Neutrophils (%) (Auto) , Lymphocytes (%) (Auto) , Monocytes (%) (Auto) , Eosinophils (%) (Auto) , Basophils (%) (Auto) , Differential Total Cells Counted 100, Neutrophils % ( Manual) 52, Lymphocytes % (Manual) 38, Monocytes % (Manual) 8, Eosinophils % ( Manual) 2, Basophils % (Manual) 0, Band Neutrophils 0, Platelet Estimate DecreasedL, Platelet Morphology Normal, Red Blood Cell Morphology Normal, Sodium Level 138, Potassium Level 4.1, Chloride Level 100, Carbon Dioxide Level 27, Anion Gap 11, Blood Urea Nitrogen 18, Creatinine 1.0, Estimat Glomerular Filtration Rate , Glucose Level 96, Calcium Level 8.7 Height (Feet): 5 Height (Inches): 7.00 Weight (Pounds): 130 General Appearance: no apparent distress EENT: normal ENT inspection Neck: normal alignment, supple Cardiovascular: normal rate, regular rhythm, no JVD Respiratory/Chest: normal breath sounds, no respiratory distress Abdomen: soft, no organomegaly Extremities: normal inspection, no calf tenderness Neurologic: responsive Negar Nelson N.P. Dec 30, 2016 11:19
[2016-12-30 11:46] VITALS: BP 97/54
--- NOTE | 2016-12-30 14:03 | General Progress Note ---
Assessment/Plan Problem List: (1) UTI (urinary tract infection) ICD Codes: N39.0 - Urinary tract infection, site not specified SNOMED: 61454737 (2) Renal failure ICD Codes: N19 - Unspecified kidney failure SNOMED: 80164781 (3) Weakness ICD Codes: R53.1 - Weakness SNOMED: 72538751 Status: stable, progressing, tolerating diet Assessment/Plan ot pt diet ivf abx dc w hospice per poa Subjective Constitutional: Reports: weakness Allergies: Coded Allergies: No Known Allergies (Unverified , 12/25/16) All Systems: reviewed and negative except above Subjective calm sleepy in bed confused Objective Last 24 Hour Vital Signs Date Time Temp Pulse Resp B/P Pulse Ox O2 Delivery O2 Flow Rate FiO2 12/30/16 11:46 97.0 63 19 97/54 98 Room Air 12/30/16 09:00 62 120/66 12/30/16 09:00 62 12/30/16 08:04 96.8 62 20 120/66 99 Room Air 12/30/16 04:00 97.4 70 18 131/86 98 Room Air 12/30/16 00:00 97.2 60 20 107/67 98 Room Air 12/29/16 21:00 60 126/65 12/29/16 20:00 97.2 72 20 118/56 98 Room Air 12/29/16 15:42 97.5 60 20 126/65 95 Room Air Intake and Output 12/29/16 12/30/16 19:00 07:00 Intake Total 945 ml 75 ml Balance 945 ml 75 ml Intake Oral 420 ml IV Total 525 ml 75 ml # Voids 5 Laboratory Tests 12/30/16 06:10: White Blood Count 6.1, Red Blood Count 3.56L, Hemoglobin 12.0L, Hematocrit 33.0L , Mean Corpuscular Volume 93, Mean Corpuscular Hemoglobin 33.7H, Mean Corpuscular Hemoglobin Concent 36.3H, Red Cell Distribution Width 13.3, Platelet Count 84L, Mean Platelet Volume 9.9, Neutrophils (%) (Auto) , Lymphocytes (%) (Auto) , Monocytes (%) (Auto) , Eosinophils (%) (Auto) , Basophils (%) (Auto) , Differential Total Cells Counted 100, Neutrophils % ( Manual) 52, Lymphocytes % (Manual) 38, Monocytes % (Manual) 8, Eosinophils % ( Manual) 2, Basophils % (Manual) 0, Band Neutrophils 0, Platelet Estimate DecreasedL, Platelet Morphology Normal, Red Blood Cell Morphology Normal, Sodium Level 138, Potassium Level 4.1, Chloride Level 100, Carbon Dioxide Level 27, Anion Gap 11, Blood Urea Nitrogen 18, Creatinine 1.0, Estimat Glomerular Filtration Rate , Glucose Level 96, Calcium Level 8.7 Height (Feet): 5 Height (Inches): 7.00 Weight (Pounds): 130 General Appearance: lethargic EENT: normal ENT inspection Neck: normal alignment Cardiovascular: normal peripheral pulses, normal rate, regular rhythm Respiratory/Chest: chest wall non-tender, lungs clear, normal breath sounds Abdomen: normal bowel sounds, non tender, soft Extremities: normal inspection Edema: no edema noted Arm (L), no edema noted Arm (R), no edema noted Leg (L), no edema noted Leg (R), no edema noted Pedal (L), no edema noted Pedal (R), no edema noted Generalized Neurologic: responsive, motor weakness Skin: normal pigmentation, warm/dry AGNIESZKA BURNS Dec 30, 2016 14:03
[2016-12-30 15:51] VITALS: BP 107/64
--- NOTE | 2016-12-30 16:01 | Pulmonology Progress Note ---
Assessment/Plan Problems: (1) Renal failure (2) ICD (implantable cardioverter-defibrillator) in place (3) Dehydration (4) Weakness Assessment/Plan bun/creatinine are decresing afebrile, wbc wnl IV fluids check electrolytes no sign of CHF DNR is appropiate dvt prophylaxis dc home or [place] with hospice Subjective ROS Limited/Unobtainable: No Constitutional: Reports: no symptoms HEENT: Repors: no symptoms Respiratory: Reports: no symptoms Allergies: Coded Allergies: No Known Allergies (Unverified , 12/25/16) Objective Last 24 Hour Vital Signs Date Time Temp Pulse Resp B/P Pulse Ox O2 Delivery O2 Flow Rate FiO2 12/30/16 15:51 97.2 67 20 107/64 97 Room Air 12/30/16 11:46 97.0 63 19 97/54 98 Room Air 12/30/16 09:00 62 120/66 12/30/16 09:00 62 12/30/16 08:04 96.8 62 20 120/66 99 Room Air 12/30/16 04:00 97.4 70 18 131/86 98 Room Air 12/30/16 00:00 97.2 60 20 107/67 98 Room Air 12/29/16 21:00 60 126/65 12/29/16 20:00 97.2 72 20 118/56 98 Room Air Intake and Output 12/29/16 12/30/16 19:00 07:00 Intake Total 945 ml 75 ml Balance 945 ml 75 ml Intake Oral 420 ml IV Total 525 ml 75 ml # Voids 5 General Appearance: WD/WN HEENT: normocephalic, atraumatic Respiratory/Chest: chest wall non-tender, normal breath sounds Cardiovascular: normal peripheral pulses, normal rate Abdomen: normal bowel sounds, soft, non tender Extremities: no cyanosis Laboratory Tests 12/30/16 06:10: White Blood Count 6.1, Red Blood Count 3.56L, Hemoglobin 12.0L, Hematocrit 33.0L , Mean Corpuscular Volume 93, Mean Corpuscular Hemoglobin 33.7H, Mean Corpuscular Hemoglobin Concent 36.3H, Red Cell Distribution Width 13.3, Platelet Count 84L, Mean Platelet Volume 9.9, Neutrophils (%) (Auto) , Lymphocytes (%) (Auto) , Monocytes (%) (Auto) , Eosinophils (%) (Auto) , Basophils (%) (Auto) , Differential Total Cells Counted 100, Neutrophils % ( Manual) 52, Lymphocytes % (Manual) 38, Monocytes % (Manual) 8, Eosinophils % ( Manual) 2, Basophils % (Manual) 0, Band Neutrophils 0, Platelet Estimate DecreasedL, Platelet Morphology Normal, Red Blood Cell Morphology Normal, Sodium Level 138, Potassium Level 4.1, Chloride Level 100, Carbon Dioxide Level 27, Anion Gap 11, Blood Urea Nitrogen 18, Creatinine 1.0, Estimat Glomerular Filtration Rate , Glucose Level 96, Calcium Level 8.7 Current Medications Medications (Trade) Dose Ordered Sig/Holly Route PRN Reason Start Time Stop Time Status Last Admin Dose Admin Acetaminophen (Tylenol) 650 mg Q4H PRN ORAL fever>100.5 12/25/16 08:00 01/24/17 07:59 Al Hydroxide/Mg Hydroxide 30 ml 30 ml Q6H PRN ORAL dyspepsia 12/25/16 08:00 01/24/17 07:59 Carvedilol (Coreg) 3.125 mg EVERY 12 HOURS ORAL 12/25/16 21:00 01/24/17 20:59 12/29/16 08:56 Dextrose (Dextrose 50%) STAT PRN IV Hypoglycemia 12/25/16 08:00 01/24/17 07:59 Dextrose/Sodium Chloride (D5 0.45% NS) 1,000 ml @ 75 mls/hr [id number] IV 12/25/16 08:00 01/24/17 07:59 12/29/16 18:23 Digoxin (Lanoxin) 0.125 mg DAILY ORAL 12/25/16 09:00 01/24/17 08:59 12/29/16 08:57 Lorazepam (Ativan 2mg/ml 1ml) 0.5 mg Q4H PRN IV For Anxiety 12/25/16 08:00 01/01/17 07:59 12/30/16 09:09 Memantine (Namenda) 5 mg BID ORAL 12/27/16 18:00 01/26/17 17:59 12/29/16 18:23 Morphine Sulfate (Morphine Sulfate) 1 mg Q4H PRN IVP For Pain 12/25/16 08:00 01/01/17 07:59 Ondansetron HCl (Zofran) 4 mg Q6H PRN IVP Nausea & Vomiting 12/25/16 08:00 01/24/17 07:59 Polyethylene Glycol (Miralax) 17 gm HSPRN PRN ORAL Constipation 12/25/16 21:00 01/24/17 20:59 Pravastatin Sodium (Pravachol) 20 mg BEDTIME ORAL 12/25/16 21:00 01/24/17 20:59 12/28/16 21:05 Zolpidem Tartrate (Ambien) 5 mg HSPRN PRN ORAL Insomnia 12/25/16 21:00 01/24/17 20:59 ANDREIA BERTRAND Dec 30, 2016 16:01
[2016-12-30 19:52] VITALS: BP 115/59
[2016-12-31] VITALS: BP 110/60
[2016-12-31 04:00] VITALS: BP 109/59
[2016-12-31] MEDS: D5 1/2NS 1,000 ML IV SCH ×2 (04:47→23:49)
[2016-12-31 08:33] VITALS: BP 96/52
[2016-12-31] MEDS: Digoxin 0.125mg tab ORAL SCH (08:36)
[2016-12-31] MEDS: Memantine 5 MG TAB ORAL SCH ×2 (08:36→18:04)
[2016-12-31] MEDS ORDERED: TYLENOL650 MG/20. ORAL (10:18)
[2016-12-31] MEDS ORDERED: MYLANTA30 M1 ORAL (10:23)
[2016-12-31] MEDS ORDERED: NAMENDA5 MG ORAL (10:25)
[2016-12-31] MEDS ORDERED: ZOFRAN 4 MG4 MG/2 ML IV (10:26)
[2016-12-31] MEDS ORDERED: MORPHINE 22 MG/1 ML IV (10:26)
[2016-12-31] MEDS ORDERED: MIRALAX17 G2 ORAL (10:30)
[2016-12-31] MEDS ORDERED: AMBIEN5 MG ORAL (10:32)
[2016-12-31 12:00] VITALS: BP 137/69
--- NOTE | 2016-12-31 14:36 | General Progress Note ---
Assessment/Plan Problem List: (1) UTI (urinary tract infection) ICD Codes: N39.0 - Urinary tract infection, site not specified SNOMED: 23696919 (2) Renal failure ICD Codes: N19 - Unspecified kidney failure SNOMED: 78190241 (3) Weakness ICD Codes: R53.1 - Weakness SNOMED: 55929837 Status: stable, progressing, tolerating diet Assessment/Plan ot pt diet ivf abx dc w hospice per poa Subjective Constitutional: Reports: weakness Allergies: Coded Allergies: No Known Allergies (Unverified , 12/25/16) All Systems: reviewed and negative except above Subjective calm sleepy in bed confused Objective Last 24 Hour Vital Signs Date Time Temp Pulse Resp B/P Pulse Ox O2 Delivery O2 Flow Rate FiO2 12/31/16 12:00 97.5 65 18 137/69 98 Room Air 12/31/16 08:36 68 96/52 12/31/16 08:36 59 12/31/16 08:33 97.2 68 16 96/52 98 Room Air 12/31/16 04:00 97.3 55 18 109/59 97 Room Air 12/31/16 00:00 98.2 69 20 110/60 97 Room Air 12/30/16 21:13 72 115/59 12/30/16 19:52 98.0 72 20 115/59 97 Room Air 12/30/16 15:51 97.2 67 20 107/64 97 Room Air Intake and Output 12/30/16 12/31/16 19:00 07:00 Intake Total 785 ml 120 ml Balance 785 ml 120 ml Intake Oral 260 ml 120 ml IV Total 525 ml # Voids 1 2 Height (Feet): 5 Height (Inches): 7.00 Weight (Pounds): 130 General Appearance: lethargic EENT: normal ENT inspection Neck: normal alignment Cardiovascular: normal peripheral pulses, normal rate, regular rhythm Respiratory/Chest: chest wall non-tender, lungs clear, normal breath sounds Abdomen: normal bowel sounds, non tender, soft Extremities: normal inspection Edema: no edema noted Arm (L), no edema noted Arm (R), no edema noted Leg (L), no edema noted Leg (R), no edema noted Pedal (L), no edema noted Pedal (R), no edema noted Generalized Neurologic: responsive, motor weakness Skin: normal pigmentation, warm/dry BURNS,AGNIESZKA Dec 31, 2016 14:36
[2016-12-31 15:48] VITALS: BP 112/77
--- NOTE | 2016-12-31 23:15 | Pulmonology Progress Note ---
Assessment/Plan Problems: (1) Renal failure (2) ICD (implantable cardioverter-defibrillator) in place (3) Dehydration (4) Weakness Assessment/Plan bun/creatinine are decresing afebrile, wbc wnl IV fluids check electrolytes no sign of CHF DNR is appropiate dvt prophylaxis dc home or long-term with hospice Subjective ROS Limited/Unobtainable: No Constitutional: Reports: anorexia, fatigue Respiratory: Reports: dyspnea at rest, shortness of breath Allergies: Coded Allergies: No Known Allergies (Unverified , 12/25/16) Objective Last 24 Hour Vital Signs Date Time Temp Pulse Resp B/P Pulse Ox O2 Delivery O2 Flow Rate FiO2 12/31/16 20:22 72 142/95 12/31/16 15:48 97.7 67 15 112/77 94 Room Air 12/31/16 12:00 97.5 65 18 137/69 98 Room Air 12/31/16 08:36 68 96/52 12/31/16 08:36 59 12/31/16 08:33 97.2 68 16 96/52 98 Room Air 12/31/16 04:00 97.3 55 18 109/59 97 Room Air 12/31/16 00:00 98.2 69 20 110/60 97 Room Air Intake and Output 12/30/16 12/31/16 19:00 07:00 Intake Total 785 ml 120 ml Balance 785 ml 120 ml Intake Oral 260 ml 120 ml IV Total 525 ml # Voids 1 2 General Appearance: no acute distress HEENT: normocephalic, atraumatic, PERRL Respiratory/Chest: chest wall non-tender, normal breath sounds, no respiratory distress Cardiovascular: normal peripheral pulses, normal rate, regular rhythm, no JVD Abdomen: normal bowel sounds, soft, non tender, no organomegaly Genitourinary: normal external genitalia Extremities: no cyanosis 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, no motor/sensory deficits Current Medications Medications (Trade) Dose Ordered Sig/Holly Route PRN Reason Start Time Stop Time Status Last Admin Dose Admin Acetaminophen (Tylenol) 650 mg Q4H PRN ORAL fever>100.5 12/25/16 08:00 01/24/17 07:59 Al Hydroxide/Mg Hydroxide 30 ml 30 ml Q6H PRN ORAL dyspepsia 12/25/16 08:00 01/24/17 07:59 Carvedilol (Coreg) 3.125 mg EVERY 12 HOURS ORAL 12/25/16 21:00 01/24/17 20:59 12/31/16 20:22 Dextrose (Dextrose 50%) STAT PRN IV Hypoglycemia 12/25/16 08:00 01/24/17 07:59 Dextrose/Sodium Chloride (D5 0.45% NS) 1,000 ml @ 75 mls/hr [id number] IV 12/25/16 08:00 01/24/17 07:59 12/31/16 04:47 Digoxin (Lanoxin) 0.125 mg DAILY ORAL 12/25/16 09:00 01/24/17 08:59 12/29/16 08:57 Lorazepam (Ativan 2mg/ml 1ml) 0.5 mg Q4H PRN IV For Anxiety 12/25/16 08:00 01/01/17 07:59 12/30/16 21:20 Memantine (Namenda) 5 mg BID ORAL 12/27/16 18:00 01/26/17 17:59 12/31/16 18:04 Morphine Sulfate (Morphine Sulfate) 1 mg Q4H PRN IVP For Pain 12/25/16 08:00 01/01/17 07:59 Ondansetron HCl (Zofran) 4 mg Q6H PRN IVP Nausea & Vomiting 12/25/16 08:00 01/24/17 07:59 Polyethylene Glycol (Miralax) 17 gm HSPRN PRN ORAL Constipation 12/25/16 21:00 01/24/17 20:59 Pravastatin Sodium (Pravachol) 20 mg BEDTIME ORAL 12/25/16 21:00 01/24/17 20:59 12/31/16 20:22 Zolpidem Tartrate (Ambien) 5 mg HSPRN PRN ORAL Insomnia 12/25/16 21:00 01/24/17 20:59 ANDREIA BERTRAND Dec 31, 2016 23:15
[2017-01-01] VITALS: BP 145/75
[2017-01-01 09:02] VITALS: BP 130/100
[2017-01-01] MEDS: Digoxin 0.125mg tab ORAL SCH (09:03)
[2017-01-01 09:04] VITALS: BP 130/100
[2017-01-01] MEDS: Memantine 5 MG TAB ORAL SCH (09:04)
--- NOTE | 2017-01-01 13:39 | Nephrology Progress Note ---
Assessment/Plan Problem List: (1) Dehydration (2) Renal failure (3) Weakness (4) UTI (urinary tract infection) (5) ICD (implantable cardioverter-defibrillator) in place Plan Renal function - resolved Continue IVF Monitor BUN/cr Monitor lytes Avoid nephrotoxic agents DVT prophylaxis DC plan -Home/SNF with hospice care Subjective Subjective in bed asleep, per sitter, pt was agitated earlier Objective Objective Last 24 Hour Vital Signs Date Time Temp Pulse Resp B/P Pulse Ox O2 Delivery O2 Flow Rate FiO2 01/01/17 09:04 74 130/100 01/01/17 09:03 78 01/01/17 09:02 74 17 130/100 100 Room Air 01/01/17 00:00 97.6 72 16 145/75 99 Room Air 12/31/16 20:22 72 142/95 12/31/16 15:48 97.7 67 15 112/77 94 Room Air Intake and Output 12/31/16 01/01/17 19:00 07:00 Intake Total 525 ml Balance 525 ml IV Total 525 ml # Voids 1 Height (Feet): 5 Height (Inches): 7.00 Weight (Pounds): 130 Negar Nelson N.P. Jan 01, 2017 13:39
--- NOTE | 2017-01-03 23:00 | Progress Note ---
DATE: 01/01/2017 SUBJECTIVE: The patient with generalized weakness. He also has had altered mental status and confusion. PLAN: I am going to continue treatment with psychotropic medications to stabilize his mood. Chart reviewed. Discussed with staff. Seen and assessed at bedside. Tierra Mills M.D. DR: LESLIE JOB#: [id number] CC:
--- NOTE | 2017-01-04 00:29 | Consultation ---
DATE OF CONSULTATION: DATE: 12/31/2016 SUBJECTIVE: The patient with generalized weakness PLAN: To continue treatment with psychotropic medications to stabilize his mood and prevent any further decline in his cognition. Chart reviewed and discussed with staff. Seen and assessed at bedside. Tierra Mills M.D. DR: BLAS JOB#: [id number] CC:
--- NOTE | 2017-01-04 02:29 | Consultation ---
DATE OF CONSULTATION: 12/28/2016 HISTORY: This is a 76-year-old male patient. This is a male patient who has generalized weakness, confusion, and disorganized thought process. We will continue treatment with psychotropic medications to stabilize his mood. Seen and assessed at bedside. Chart reviewed. Discussed with staff. Tierra Mills M.D. DR: SANDRA JOB#: [id number] CC:
--- NOTE | 2017-01-04 02:39 | Progress Note ---
DATE: 12/29/2016 SUBJECTIVE: The patient has generalized weakness. A 76-year-old male still confused taking psychotropic meds to stabilize his mood. DIAGNOSIS: Paranoid schizophrenia, rule out dementia with psychosis. Chart reviewed and discussed with staff. Continue treatment with psychotropic medications to prevent any decline in his cognition. Tierra Mills M.D. DR: DARIA JOB#: [id number] CC:
--- NOTE | 2017-01-04 02:49 | Progress Note ---
DATE: 12/30/2016 SUBJECTIVE: The patient is a 76-year-old male. The patient is with generalized weakness. PLAN: We will continue treatment especially with psychotropic medications to prevent any further decline in the cognition. He will continue to be followed by Psychiatry during the hospital course. Chart was reviewed. Discussed with staff. Seen and assessed at bedside. Tierra Mills M.D. DR: EFRAIN JOB#: [id number] CC:
--- NOTE | 2017-01-04 08:29 | Discharge Summary ---
Discharge Summary Hospital Course Date of Admission Dec 25, 2016 at 02:05 Date of Discharge Jan 01, 2017 at 14:25 Admitting Diagnosis general weakness HPI Norberto Silver is a 76 year old male who was admitted on Dec 25, 2016 at 02:05 for General Weakness Hospital Course dc summary dictated # [id number] Discharge Medications Continued Medications: Acetaminophen (Acetaminophen) 650 Mg/20.3 Ml Solution 650 MG ORAL Q4HR PRN for Fever/Headache/Mild Pain, ML 0 Refills Al Hydroxide/mg Hydroxide (Mag-Al Liquid) 30 Ml Oral.susp 30 ML ORAL EVERY 6 HOURS, ML Carvedilol* (Carvedilol*) 3.125 Mg Tablet 3.125 MG ORAL EVERY 12 HOURS, TAB Digoxin* (Digoxin*) 125 Mcg Tablet 125 MCG ORAL DAILY, TAB Lorazepam* (Lorazepam*) 0.5 Mg Tablet 0.5 MG ORAL Q6HR PRN for For Anxiety, TAB Memantine Hcl* (Namenda*) 5 Mg Tablet 5 MG ORAL TWICE A DAY, TAB Morphine Sulfate* (Morphine Sulfate*) 2 Mg/1 Ml Cartridge 1 MG IV EVERY 4 HOURS for For Pain, EA Ondansetron* (Zofran*) 4 Mg/2 Ml Vial 4 MG IV Q6H PRN for Nausea & Vomiting, VIAL Polyethylene Glycol 3350* (Miralax*) 17 Gm Powd.pack 17 GM ORAL PRN, PACKET Pravastatin Sod* (Pravastatin Sod*) 20 Mg Tablet 20 MG ORAL BEDTIME, TAB Zolpidem Tartrate* (Ambien*) 5 Mg Tablet 5 MG ORAL BEDTIME PRN for Insomnia, TAB Discharge Condition Upon Discharge: stable Discharge Disposition Patient was discharged to Home with Hospice (50) Discharge Diagnoses: Nicanor (Carlosamara),Pallavi MESA Jan 04, 2017 08:29
--- NOTE | 2017-01-05 03:59 | Discharge Summary 2 SIG ---
DATE OF ADMISSION: 12/25/2016 DATE OF DISCHARGE: 01/01/2017 REASON FOR ADMISSION: 76-year-old male, was brought in from a senior living facility where he resides, with complaint of agitation and decreased oral intake. He was brought in for an evaluation. There was no report of vomiting or diarrhea. No reported fevers or chills. The patient himself was unable to provide any history. The patient's condition was deteriorated according to the alf and the patient was sent for further evaluation. ED workup revealed evidence of renal failure. The patient was hydrated and transferred to Medical/Surgical floor for further management. Past medical history significant for hypertension, pacemaker, chronic kidney disease, atrial fibrillation, CHF, hyperlipidemia and seizure disorder. ADMITTING DIAGNOSES: 1. Acute tubular necrosis on chronic kidney disease secondary to dehydration. 2. Dehydration. 3. Seizure disorder. 4. Paroxysmal atrial fibrillation. 5. Congestive heart failure. 6. Pacemaker. HOSPITAL COURSE: The patient was admitted to Med/Surg floor. The patient was started on the IV hydration. Renal parameters and electrolytes were closely monitored. Nephrotoxic avoided.. Top Lift Compresser follow. Renal ultrasound reveal normal echogenicity of both kidneys, negative for hydronephrosis, small bilateral renal cysts, non-shadowing hyperechoic foci on the right, possibly representing nonobstructive calyceal calculi or it could be artificial. Renal parameters with IV hydration improved. Acute tubular necrosis resolved. Acute tubular necrosis was likely secondary to dehydration. Creatinine was down to 1.0 on 12/30/2016. Seizure precaution maintained. No seizure activity while in the hospital. The patient was on Depakote. The patient was in sinus rhythm on monitor. No evidence of paroxysmal atrial fibrillation. The patient was continued on digoxin and beta-rian. Digoxin level was therapeutic. Blood pressure was stable. Elevated CEA on the previous admission. Stable hemoglobin and hematocrit. Statin was continued. Lipid panel was within normal limits. The patient was working with physical and occupational therapies as well as the speech therapist. Dietary evaluation recommendation implemented. Calorie count started. The patient was able to eat about 50% of the food tray. Blood culture drawn in the emergency room were negative. No antibiotics. The patient has a history of paranoid schizophrenia. Psych evaluation was requested. Psychotropic medications were adjusted. The patient noted to be with thrombocytopenia, possibly results of the Depakote. Peripheral blood smear review revealed mild thrombocytopenia, but no platelet aggregates. Mild anemia, normocephalic, normochromic, no specific morphological changes seen. Swallow evaluation revealed aspiration risk. Diet was changed to the mechanical soft with thin liquids. Strict aspiration precaution and one-to-one supervision implemented. Follow up with the speech therapy services at the senior living facility was recommended. Acute tubular necrosis was likely precipitated by dehydration, resolved. Electrolytes and renal parameters were all stable. Stable hemoglobin and hematocrit. No leukocytosis. The patient's chest x-ray was negative for any acute cardiopulmonary disease. Supplemental oxygen and pulmonary toilet were provided as needed. CEA with mild elevation of 4.2, however, the patient with DNR / DNI status with a focus on comfort measure, thus not advisable to have any further gastrointestinal workup. After conversation with physician, the family decided to take the patient home with hospice services to follow. DISCHARGE DIAGNOSES: 1. Acute tubular necrosis secondary to dehydration, resolved. 2. Dehydration, resolved. 3. Paroxysmal atrial fibrillation. 4. Congestive heart failure. 5. Seizure disorder. 6. Elevated carcinoembryonic antigen. 7. Thrombocytopenia. 8. Paranoid schizophrenia. 9. Dysphagia. 10. Hyperlipidemia. DISCHARGE MEDICATIONS: See medication reconciliation list. DISCHARGE INSTRUCTIONS: The patient discharged home with hospice services per family wishes. The patient with DNR/ DNI status with focus on comfort measures. Scott Cruz D.O. I have been assigned to dictate discharge summary on this account and I was not involved in the patient's management. Pallavi Heathvonda N.PHarlan DR: JHOANA JOB#: [id number] CC: HERNAN
--- NOTE | 2017-01-22 09:20 | Consultation ---
DATE OF CONSULTATION: 12/25/2016 PSYCHOTHERAPY CONSULTATION PROGRESS NOTE: CONSULTING PHYSICIAN: Belkis Cross M.D. TREATING ATTENDING: Scott Cruz D.O. HISTORY OF PRESENT ILLNESS: The patient is a 76-year-old male. The patient was admitted to the hospital due to generalized weakness, encephalopathy, . The patient was seen in . The patient for this reason was referred for psychotherapeutic services. The clinician assessed the patient. The patient has and agitated. He has been worried about . There is no indication of suicidal or homicidal or thoughts of ideation. PAST MEDICAL HISTORY: History of renal failure and encephalopathy. ALLERGIES: The patient has no known drug allergies. SUBSTANCE ABUSE HISTORY: There is no indication of alcohol use, illicit substance use, or smoking cigarettes. PSYCHIATRIC HISTORY: The patient does have a history of paranoid schizophrenia. The patient has had multiple inpatient psychiatric hospitalizations in the past and has been treated with psychotropic medications. SOCIAL HISTORY: The patient is a 76-year-old male from [facility]. Financially sustained through Medicare and [employer]. MENTAL STATUS EXAMINATION: The patient is alert and oriented x1 to person. Mood is depressed and irritable . Affect is labile. Thought process is disorganized. Thought content, . The patient has poor attention and concentration. Poor insight, judgment, and impulse control. . DIAGNOSES: AXIS I: Paranoid schizophrenia. AXIS II: Deferred. AXIS III: Per History and Physical. AXIS IV: Psychosocial stressors moderate. PLAN: This clinician assessed the patient and provided the patient with supportive psychotherapy, reality orientation, and coping skills. Encouraging the patient to participate in treatment as well as medication regimen. Continue with medication management and behavioral management. This clinician has reviewed the patient's chart. Discussed the treatment with nursing staff. Belkis Cross PsyD. DR: Holland JOB#: [id number] CC:
== END 2017-01-01 14:25 | disposition hospice, home (50) | DRG 682 ==
LOC: ENRESERVDT → ENRESERVTM → ENRESERV → EDBD 01:08 → EMR 01:30 → 4E 02:05 → EDBEDREQ 05:23 → 4E 12:41
DX: N17.0 Acute kidney failure with tubular necrosis (principal); G93.40 Encephalopathy, unspecified; N39.0 Urinary tract infection, site not specified; D69.6 Thrombocytopenia, unspecified; I50.9 Heart failure, unspecified; R13.10 Dysphagia, unspecified; E86.0 Dehydration; I48.0 Paroxysmal atrial fibrillation; I12.9 Hypertensive chronic kidney disease with stage 1 through stage 4 chronic kidney disease, or unspecified chronic kidney disease; E78.5 Hyperlipidemia, unspecified; F20.0 Paranoid schizophrenia; Z51.5 Encounter for palliative care; G40.909 Epilepsy, unspecified, not intractable, without status epilepticus; D64.9 Anemia, unspecified; N18.9 Chronic kidney disease, unspecified; R97.0 Elevated carcinoembryonic antigen [CEA]; Z66 Do not resuscitate; R53.1 Weakness; Z95.810 Presence of automatic (implantable) cardiac defibrillator
CPT/HCPCS: 36415; 71010; 76775; 80048; 80053; 80061; 80162; 81003; 82378; 82533; 82550; 82553; 82607; 82746; 83540; 83550; 83605; 83615; 83690; 83735; 83930; 83935; 84100; 84439; 84443; 84481; 84484; 84550; 85007; 85025; 85044; 85060; 85610; 85651; 85730; 87040; 87081; 93005